=== PATIENT | male | born 1960 | race Caucasian/White ===

== ENCOUNTER → 2018-01-20 10:34 | Outpatient (CLI) | payer BC, SELFPAY ==
[2018-01-22 16:11] LABS: PROEL- A/G Ratio 1.4 (0.7-1.7); PROEL- Albumin 3.7 g/dL (2.9-4.4); PROEL- Alpha-1 Globulin 0.2 g/dL (0.0-0.4); PROEL- Alpha-2 Globulin 0.6 g/dL (0.4-1.0); PROEL- Beta Globulin 1.1 g/dL (0.7-1.3); PROEL- Gamma Globulin 0.9 g/dL (0.4-1.8); PROEL- Globulin, Total 2.7 g/dL (2.2-3.9); PROEL- TOTAL PROTEIN 6.4 g/dL (6.0-8.5)
[2018-01-23 11:34] LABS: Anti-Nuclear Antibody Test Negative (.)
== END ==
PROVIDERS: Family Provider Family Medicine; PCP Family Medicine; Visit Provider Internal Medicine Nephrology
DX: R80.9 Proteinuria, unspecified (principal)
CPT/HCPCS: 36415; 84165; 84166; 86038

== ENCOUNTER → 2018-01-21 13:20 | Outpatient (CLI) | payer BC, SELFPAY ==
--- NOTE | 2018-01-21 13:24 | US_ITS ---
STUDY: RENAL ULTRASOUND - COMPLETE REASON FOR EXAM: Male, 57 years old. Chronic renal failure. TECHNIQUE: Ultrasound evaluation of the kidneys was performed with real-time and static wilson-scale imaging. COMPARISON: None. FINDINGS: RIGHT KIDNEY: Normal location of the right kidney, which is normal in size. The right kidney measures 12.2 x 6.2 x 4.6 cm. There is a normal cortex of the right kidney. The renal cortex measures 1.3 cm. There is no right renal mass or cyst. There is a 9 mm nonobstructing renal stone. There is no right hydronephrosis. DISTAL RIGHT URETER: There is non-visualization of the distal right ureter. There is no demonstrated right ureterovesical junction calculus. There is a visualized right ureteral jet. LEFT KIDNEY: Normal location of the left kidney, which is normal in size. The left kidney measures 12.2 x 4.9 x 5.4 cm. There is a normal cortex of the left kidney. The renal cortex measures 1.4 cm. There is no left renal mass or cyst. There are no left renal calculi. There is no left hydronephrosis. DISTAL LEFT URETER: There is non-visualization of the distal left ureter. There is no demonstrated left ureterovesical junction calculus. There is a visualized left ureteral jet. BLADDER: The distended urinary bladder has a volume of 191 ml. There is a normal wall thickness of the distended urinary bladder. There is no demonstrated mass within the urinary bladder. There are no demonstrated bladder calculi. US/Kidney and Bladder IMPRESSION: Nonobstructing stone of the right kidney, otherwise negative. Electronically Signed: Santana Medel MD at 20:14 EDT , Service support ,
== END ==
PROVIDERS: Family Provider Family Medicine; PCP Family Medicine; Visit Provider Internal Medicine Nephrology
DX: N18.3 Chronic kidney disease, stage 3 (moderate) (principal)
CPT/HCPCS: 76770

== ENCOUNTER → 2018-02-16 10:55 | Outpatient (CLI) | payer BC, SELFPAY ==
[2018-02-16 12:50] LABS: BUN 18 mg/dL (7-18); BUN/Creat Ratio 13.3 RATIO (10-20); Calcium,Total 8.8 mg/dL (8.5-10.1); Chloride 103 mmol/L (98-107); Creatinine, Serum 1.35 mg/dL (0.70-1.30); EST Glomerular Filtration Rate 58 mL/min (>60); Est Glom Filt Rate - Afr Amer 70 mL/min (>60); Glucose 95 mg/dL (74-106); Phosphorus 3.3 mg/dL (2.5-4.9); Protein, Urine (Random) 39.1 mg/dL (<11.9); Protein:Creat Ratio 326 mg/g CRE (0-200); Sodium Level 137 mmol/L (136-145)
== END ==
PROVIDERS: Family Provider Family Medicine; PCP Family Medicine; Visit Provider Internal Medicine Nephrology
DX: R80.9 Proteinuria, unspecified (principal)
CPT/HCPCS: 36415; 80069; 82570; 84156

== ENCOUNTER → 2018-03-23 13:37 | Outpatient (CLI) | payer BC, SELFPAY ==
[2018-03-23 14:45] LABS: Anion Gap 7 (5-15); BUN 18 mg/dL (7-18); BUN/Creat Ratio 13.5 RATIO (10-20); Chloride 106 mmol/L (98-107); Creatinine, Serum 1.33 mg/dL (0.70-1.30); EST Glomerular Filtration Rate 59 mL/min (>60); Est Glom Filt Rate - Afr Amer 71 mL/min (>60); Glucose 93 mg/dL (74-106); Potassium 4.4 mmol/L (3.5-5.1); Sodium Level 140 mmol/L (136-145)
== END ==
PROVIDERS: Family Provider Family Medicine; PCP Family Medicine; Visit Provider Internal Medicine Nephrology
DX: E87.5 Hyperkalemia (principal)
CPT/HCPCS: 36415; 80048

== ENCOUNTER → 2018-05-01 11:19 | Outpatient (CLI) | payer BC, SELFPAY ==
[2018-05-01 11:54] LABS: 24 Hour Urine Protein 533.6 mg/24HR (<150 MG/24HR); 24HR. UA Prot. Total Volume 2300 mL; Urine Protein (24 Hour) 23.2 mg/dL (<11.9)
[2018-05-01 13:35] LABS: BUN 21 mg/dL (7-18); BUN/Creat Ratio 15.6 RATIO (10-20); Calcium,Total 8.9 mg/dL (8.5-10.1); Chloride 106 mmol/L (98-107); Creatinine, Serum 1.35 mg/dL (0.70-1.30); EST Glomerular Filtration Rate 58 mL/min (>60); Est Glom Filt Rate - Afr Amer 70 mL/min (>60); Glucose 107 mg/dL (74-106); Phosphorus 3.5 mg/dL (2.5-4.9); Sodium Level 141 mmol/L (136-145)
== END ==
PROVIDERS: Family Provider Family Medicine; PCP Family Medicine; Visit Provider Internal Medicine Nephrology
DX: R80.9 Proteinuria, unspecified (principal); E87.5 Hyperkalemia
CPT/HCPCS: 36415; 80069; 82570; 84156

== ENCOUNTER → 2018-05-21 09:23 | Outpatient (CLI) | payer BC, SELFPAY ==
[2018-05-21 09:48] LABS: CPK Total, Creatine Kinase 148 U/L (39-308)
== END ==
PROVIDERS: Family Provider Family Medicine; PCP Family Medicine; Visit Provider Family Medicine
DX: R07.89 Other chest pain (principal)
CPT/HCPCS: 82550; 84484

== ENCOUNTER 2018-06-24 15:50 | Observation (INO) | payer BC, SELFPAY ==
[2018-06-24] VITALS (15 sets, daily range): BP systolic 111–146; BP diastolic 73–98; PULSE 63–77; RESP 10–20; TEMP 36.6–36.8; O2SAT 95–98; BMI 32.0; BMI 30.5; BMI 30.6
--- NOTE | 2018-06-24 16:06 | EKG12_ITS ---
Test Reason : CP Blood Pressure : / mmHG Vent. Rate : 073 BPM Atrial Rate : 073 BPM P-R Int : 142 ms QRS Dur : 086 ms QT Int : 362 ms P-R-T Axes : 036 030 018 degrees QTc Int : 398 ms Normal sinus rhythm with sinus arrhythmia Possible Left atrial enlargement Borderline ECG Confirmed by MELIDA LARA, ZAHIRA ([id number]), assistant film editor KERI LIVINGSTON ([id number]) on 06/26/2018 1:54:39 PM Referred By: KARINE Confirmed By:ZAHIRA MONTEZ MD
[2018-06-24] MEDS: Mag Hydrox/Al Hydrox/Simeth 30 ML UDC PO (16:13)
--- NOTE | 2018-06-24 16:23 | NURSING ---
CALLED [facility] TO GET NUCLEAR STRESS TEST RESULTS
--- NOTE | 2018-06-24 17:17 | RAD_ITS ---
STUDY: X-RAY CHEST REASON FOR EXAM: Male, 58 years old. Chest pressure. TECHNIQUE: Single AP portable upright view of the chest. COMPARISON: PA and lateral chest x-ray July 14, 2017. FINDINGS: Subsegmental density of crowding versus inflammation suggested in the medial right lung base. The lungs are otherwise clear and expanded. There is no demonstrated pleural abnormality. Normal size heart. Normal mediastinum and cristiana. Normal visualized pulmonary arteries. Normal visualized aortic arch and descending thoracic aorta. There are stable degenerative changes of the visualized thoracic spine. Normal visualized ribs, clavicles, and shoulders. There is no demonstrated abnormality of the visualized soft tissue structures of the upper abdomen. RAD/Chest 1 View (Portable) IMPRESSION: Subsegmental crowding versus inflammatory change in the medial right base. Electronically Signed: Barber Perry MD at 17:39 EDT , Service support ,
[2018-06-24] MEDS: Nitroglycerin Infusion 250 ML 3 MG IV (17:25)
--- NOTE | 2018-06-24 17:25 | NURSING ---
DR SHETTY IN ROOM
[2018-06-24 17:41] LABS: Anion Gap 10 (5-15); BUN 20 mg/dL (7-18); BUN/Creat Ratio 14.9 RATIO (10-20); Calcium,Total 8.9 mg/dL (8.5-10.1); Chloride 106 mmol/L (98-107); Creatinine, Serum 1.34 mg/dL (0.70-1.30); EST Glomerular Filtration Rate 58 mL/min (>60); Est Glom Filt Rate - Afr Amer 71 mL/min (>60); Estimated Creatinine Clearance 58.84 ml/min; Glucose 97 mg/dL (74-106); Sodium Level 139 mmol/L (136-145)
[2018-06-24] MEDS: Enoxaparin 100 MG/ML Syringe SC (17:46)
[2018-06-24] MEDS: Clopidogrel Bisulfate 300 MG Tablet PO (17:46)
--- NOTE | 2018-06-24 17:49 | NURSING ---
PCU DIOGENES OBS UNSTABLE ANGINA
--- NOTE | 2018-06-24 17:56 | NURSING ---
104 OBS UNSTABLE ANGINA DIOGENES
--- NOTE | 2018-06-24 17:58 | ED.VISSUMM ---
- ER Visit Summary Date of Service: 06/24/18 Chief Complaint: Chest pressure during nuclear stress test History of Present Illness: The patient is a 58 M who had a stress test a couple weeks ago and was informed it was possibly abnormal. Patient was having chest discomfort that was not exertional in nature. Pain was not positional nor was it related to food. Today's episode occurred during activity and was not alleviated by nitroglycerin. He denies black or bloody stool. He denies hematemesis. He does have history of GERD and proteinuria. He is presently on lisinopril 20 mg. He informed me that Dr. Martinez, the spray technician, prescribed lisinopril for proteinuria. He is a non-smoker. He denies symptoms of claudication. He has no other symptoms. Please read written note for complete detail. Physical Examination: Vital signs noted and blood pressure is slightly low at 139/82. He is not hypoxic. Head is atraumatic normocephalic. Pupils are equal round reactive. Extraocular muscles are intact. TMs are pearly white with landmarks noted. Nares patent with no drainage. Posterior pharynx without erythema or exudate. Uvula is midline. There is no dysphonia or dysphasia. Trachea is midline. There is no stridor with auscultation of the neck. Heart is regular without murmur, gallop or rub. S1 and S2 are normal. Lungs are clear to auscultation with good movement of air bilaterally. Abdomen is soft nontender with no palpable cell mass or abdominal bruit. There is no asymmetry, swelling, discoloration, leg vein distention, palpable cords or tenderness along the distribution of the deep venous system. DP and PT pulses are palpable and 2+. Patient has hair on his toes. Neuro exam is nonfocal. Test Results: EKG revealed a sinus rhythm with no acute ischemic changes. [place] contacted the [facility] for results of nuclear stress test. Because of atypical history a troponin was obtained. And because he had no relief with 3 nitroglycerin prior to arrival and was given aspirin he was given a GI cocktail with no benefit. After reviewing the results of the stress test he was placed on a nitroglycerin drip and anticoagulated with Lovenox 1 mg/kg subcu and after discussion with Dr. Naylor received 300 mg of Plavix p.o. Emergency Department Course and Treatment: Obtain nuclear stress test results. After reviewing nuclear stress test results that indicates inferolateral ischemia Dr. Naylor was contacted. Dr. Garcia saw patient. Agrees with treatment. He requested 300 mg of Plavix. Treatment Plan: PCU and scheduled cardiac catheterization tomorrow Disposition: 23 observation PCU Impression: Unstable angina/acute coronary syndrome Renal insufficiency History of proteinuria This note was generated with [employer] dictation software. It may contain incorrect words, spelling, and punctuation that were not noted in review of the chart prior to signing ED Disposition - Plan for ED Patient: Chief Complaint: Chest Pain Referrals: Moody Beltre MD [Primary Care Provider] -
--- NOTE | 2018-06-24 18:02 | ED.DCSUM_ITS ---
- ER Visit Summary Date of Service: 06/24/18 Chief Complaint: Chest pressure during nuclear stress test History of Present Illness: The patient is a 58 M who had a stress test a couple weeks ago and was informed it was possibly abnormal. Patient was having chest discomfort that was not exertional in nature. Pain was not positional nor was it related to food. Today's episode occurred during activity and was not alleviated by nitroglycerin. He denies black or bloody stool. He denies hematemesis. He does have history of GERD and proteinuria. He is presently on lisinopril 20 mg. He informed me that Dr. Martinez, the ladle builder, prescribed lisinopril for proteinuria. He is a non-smoker. He denies symptoms of claudication. He has no other symptoms. Please read written note for complete detail. Physical Examination: Vital signs noted and blood pressure is slightly low at 139/82. He is not hypoxic. Head is atraumatic normocephalic. Pupils are equal round reactive. Extraocular muscles are intact. TMs are pearly white with landmarks noted. Nares patent with no drainage. Posterior pharynx without erythema or exudate. Uvula is midline. There is no dysphonia or dysphasia. Trachea is midline. There is no stridor with auscultation of the neck. Heart is regular without murmur, gallop or rub. S1 and S2 are normal. Lungs are clear to auscultation with good movement of air bilaterally. Abdomen is soft nontender with no palpable cell mass or abdominal bruit. There is no asymmetry, swelling, discoloration, leg vein distention, palpable cords or tenderness along the distribution of the deep venous system. DP and PT pulses are palpable and 2+. Patient has hair on his toes. Neuro exam is nonfocal. Test Results: EKG revealed a sinus rhythm with no acute ischemic changes. [place] contacted the [facility] for results of nuclear stress test. Because of atypical history a troponin was obtained. And because he had no relief with 3 nitroglycerin prior to arrival and was given aspirin he was given a GI cocktail with no benefit. After reviewing the results of the stress test he was placed on a nitroglycerin drip and anticoagulated with Lovenox 1 mg/kg subcu and after discussion with Dr. Naylor received 300 mg of Plavix p.o. Emergency Department Course and Treatment: Obtain nuclear stress test results. After reviewing nuclear stress test results that indicates inferolateral ischemia Dr. Naylor was contacted. Dr. Garcia saw patient. Agrees with treatment. He requested 300 mg of Plavix. Treatment Plan: PCU and scheduled cardiac catheterization tomorrow Disposition: 23 observation PCU Impression: Unstable angina/acute coronary syndrome Renal insufficiency History of proteinuria This note was generated with [employer] dictation software. It may contain incorrect words, spelling, and punctuation that were not noted in review of the chart prior to signing ED Disposition - Plan for ED Patient: Chief Complaint: Chest Pain Referrals: Moody Beltre MD [Primary Care Provider] -
--- NOTE | 2018-06-24 18:09 | EKG12_ITS ---
Test Reason : REPEAT Blood Pressure : / mmHG Vent. Rate : 065 BPM Atrial Rate : 065 BPM P-R Int : 146 ms QRS Dur : 088 ms QT Int : 392 ms P-R-T Axes : 032 042 -07 degrees QTc Int : 407 ms Normal sinus rhythm Normal ECG Confirmed by Najma Khan ([id number]), make up editor KERI LIVINGSTON ([id number]) on 06/29/2018 3:34:24 PM Referred By: DIOGENES Confirmed By:Najma Khan
--- NOTE | 2018-06-24 18:17 | PCM.CONS.C ---
Reason for Consult Date of Consultation: 06/24/18 Reason for Consultation: Chest pain History of Present Illness: The patient is a 58 year old M with no previous cardiac history other than mild proteinuria and possible hypertension. He was scheduled for and underwent an exercise stress test without imaging a few weeks ago and was told that it was inconclusive and was brought back for an exercise myocardial perfusion stress test today. This was on the basis of chest discomfort that he had had intermittently. He describes this as a heaviness occasionally radiating to the left side of his arm. He exercised 9 minutes and 50 seconds on the Kike protocol attaining 11.4 metabolic equivalents. There was approximately 1.[address] depression noted in the inferior leads during testing a marbella minute by chest discomfort. Necessitated termination of the chest discomfort and he was sent to the emergency room for further evaluation and treatment. The nuclear portion of the stress test however was noted to be normal. Since arrival in the emergency room he has noted minimal chest discomfort he was noted to be mildly hypertensive he was given sublingual nitroglycerin in the ambulance en route with minimal improvement. He has not had any prior dizziness or diaphoresis near syncope or syncope. [] Past Medical History Allergies/Adverse Reactions: Allergies bee venom protein (honey bee) Allergy (Verified 06/24/18 15:51) Anaphylaxis Home Medications: Ambulatory Orders Medication Instructions Recorded Acetaminophen [Tylenol Extra 1,500 mg PO DAILY 06/24/18 Strength] Lisinopril 20 mg PO DAILY 06/24/18 Omeprazole 40 mg PO DAILY 06/24/18 Surgical History: no surgical history Smoking Status: Never smoker Alcohol: Occasional Drugs: None Review of Systems - Review of Systems General: Denies: Fever, Night Sweats, Fatigue Cardiovascular: Reports: Chest Discomfort with Exertion, Chest Pressure, Chest Heaviness. Denies: Chest Discomfort, Shortness of Breath, Orthopnea, PND, Peripheral Edema, Palpitations, Lightheadedness, Dizziness, Near Syncope, Syncope Respiratory: Denies: Cough, Sputum Production, Hemoptysis Gastrointestinal: Denies: Hematemesis, Hematochezia, Melena Genitourinary: Denies: Dysuria, Hematuria Skin: Denies: Rash Subjectve: Pleasant gentleman in no apparent distress at this time Objective: Vital Signs Temp Pulse Resp BP Pulse Ox 98.1 F 70 15 146/95 H 97 06/24/18 15:52 06/24/18 18:07 06/24/18 18:07 06/24/18 18:07 06/24/18 18:07 Oxygen Delivery Method Room Air Weight: 210 lb 8.663 oz Body Mass Index (BMI) 32.0 General: Awake, Alert, Oriented x 3 HEENT: PERRL, EOMI, Sclera Non Icteric Neck: Supple, Good ROM, No Lymph Node Enlargement Lungs: Clear to auscultation Cardiovascular: Regular Rhythm, Normal S1, Normal S2, No Murmurs, No Rubs, No Gallops Vascular: No Carotid Bruits, Normal Femoral Pulses, Normal Radial Pulses, Normal Dorsalis Pedal Pulse, Normal Posterior Tibial Pulses Abdomen: Bowel Sounds Present, Soft, Non Tender, No HSM, No Organomegaly Extremities: No Cyanosis, No Clubbing, No edema Neurological: No Focal Motor or Sensory Deficit 06/24/18 16:10: Troponin I < 0.015 06/24/18 16:10: Sodium 139, Potassium 4.0, Chloride 106, Carbon Dioxide 23.0, Anion Gap 10, BUN 20 H, Creatinine 1.34 H, Est GFR (MDRD) Af Amer 71, Est GFR (MDRD) Non-Af 58 L, BUN/Creatinine Ratio 14.9, Glucose 97, Calcium 8.9 Rhythm: EKG: ECHO: Stress Test: Cardiac Cath: PCI: CT Surgery: Holter monitor: EPS: PPM: CXR: Chest CT Scan: Assessment/Plan 1. Chest pain-with abnormal stress test. He presents with chest discomfort with an abnormal EKG portion of the stress test but a normal myocardial perfusion test. He still continues to have some of the chest discomfort despite a normal cardiac troponin enzyme test. Due to the persistence of the chest discomfort it was felt that he should undergo a cardiac catheterization in a.m. The risk benefits alternatives have been explained to him he understands and agrees to proceed. He would prefer to have this done via the femoral approach in case he needs an angioplasty. Will recommend starting baby aspirin Will load him with clopidogrel Start metoprolol 25 mg twice a day Lovenox tonight Intravenous hydration with 75 cc/hr of normal saline Lipid profile in a.m. Depending on the results of the above tests further recommendations will be made. Above discussed with the patient and his . 2. Proteinuria Will recommend resuming the MACARENA inhibitor. 3. Suspected hypertension Suspect that he does have high blood pressure and will continue treating him with his MACARENA inhibitor. Thank you for allowing me to participate in the care of your patient. Please don't hesitate to call if any issues arise
--- NOTE | 2018-06-24 18:22 | CON.PCM_ITS ---
Reason for Consult Date of Consultation: 06/24/18 Reason for Consultation: Chest pain History of Present Illness: The patient is a 58 year old M with no previous cardiac history other than mild proteinuria and possible hypertension. He was scheduled for and underwent an exercise stress test without imaging a few weeks ago and was told that it was inconclusive and was brought back for an exercise myocardial perfusion stress test today. This was on the basis of chest discomfort that he had had intermittently. He describes this as a heaviness occasionally radiating to the left side of his arm. He exercised 9 minutes and 50 seconds on the Kike protocol attaining 11.4 metabolic equivalents. There was approximately 1.[address] depression noted in the inferior leads during testing a marbella minute by chest discomfort. Necessitated termination of the chest discomfort and he was sent to the emergency room for further evaluation and treatment. The nuclear portion of the stress test however was noted to be normal. Since arrival in the emergency room he has noted minimal chest discomfort he was noted to be mildly hypertensive he was given sublingual nitroglycerin in the ambulance en route with minimal improvement. He has not had any prior dizziness or kemal phoresis near syncope or syncope. [] Past Medical History Allergies/Adverse Reactions: Allergies bee venom protein (honey bee) Allergy (Verified 06/24/18 15:51) Anaphylaxis Home Medications: Ambulatory Orders Medication Instructions Recorded Acetaminophen [Tylenol Extra 1,500 mg PO DAILY 06/24/18 Strength] Lisinopril 20 mg PO DAILY 06/24/18 Omeprazole 40 mg PO DAILY 06/24/18 Surgical History: no surgical history Smoking Status: Never smoker Alcohol: Occasional Drugs: None Review of Systems - Review of Systems General: Denies: Fever, Night Sweats, Fatigue Cardiovascular: Reports: Chest Discomfort with Exertion, Chest Pressure, Chest Heaviness. Denies: Chest Discomfort, Shortness of Breath, Orthopnea, PND, Peripheral Edema, Palpitations, Lightheadedness, Dizziness, Near Syncope, Syncope Respiratory: Denies: Cough, Sputum Production, Hemoptysis Gastrointestinal: Denies: Hematemesis, Hematochezia, Melena Genitourinary: Denies: Dysuria, Hematuria Skin: Denies: Rash Subjectve: Pleasant gentleman in no apparent distress at this time Objective: Vital Signs Temp Pulse Resp BP Pulse Ox 98.1 F 70 15 146/95 H 97 06/24/18 15:52 06/24/18 18:07 06/24/18 18:07 06/24/18 18:07 06/24/18 18:07 Oxygen Delivery Method Room Air Weight: 210 lb 8.663 oz Body Mass Index (BMI) 32.0 General: Awake, Alert, Oriented x 3 HEENT: PERRL, EOMI, Sclera Non Icteric Neck: Supple, Good ROM, No Lymph Node Enlargement Lungs: Clear to auscultation Cardiovascular: Regular Rhythm, Normal S1, Normal S2, No Murmurs, No Rubs, No Gallops Vascular: No Carotid Bruits, Normal Femoral Pulses, Normal Radial Pulses, Normal Dorsalis Pedal Pulse, Normal Posterior Tibial Pulses Abdomen: Bowel Sounds Present, Soft, Non Tender, No HSM, No Organomegaly Extremities: No Cyanosis, No Clubbing, No edema Neurological: No Focal Motor or Sensory Deficit 06/24/18 16:10: Troponin I < 0.015 06/24/18 16:10: Sodium 139, Potassium 4.0, Chloride 106, Carbon Dioxide 23.0, Anion Gap 10, BUN 20 H, Creatinine 1.34 H, Est GFR (MDRD) Af Amer 71, Est GFR (MDRD) Non-Af 58 L, BUN/Creatinine Ratio 14.9, Glucose 97, Calcium 8.9 Rhythm: EKG: ECHO: Stress Test: Cardiac Cath: PCI: CT Surgery: Holter monitor: EPS: PPM: CXR: Chest CT Scan: Assessment/Plan 1. Chest pain-with abnormal stress test. * He presents with chest discomfort with an abnormal EKG portion of the stress test but a normal myocardial perfusion test. He still continues to have some of the chest discomfort despite a normal cardiac troponin enzyme test. Due to the persistence of the chest discomfort it was felt that he should undergo a cardiac catheterization in a.m. The risk benefits alternatives have been explained to him he understands and agrees to proceed. He would prefer to have this done via the femoral approach in case he needs an angioplasty. * Will recommend starting baby aspirin * Will load him with clopidogrel * Start metoprolol 25 mg twice a day * Lovenox tonight * Intravenous hydration with 75 cc/hr of normal saline * Lipid profile in a.m. * Depending on the results of the above tests further recommendations will be made. Above discussed with the patient and his . * 2. Proteinuria * Will recommend resuming the MACARENA inhibitor. * 3. Suspected hypertension * Suspect that he does have high blood pressure and will continue treating him with his MACARENA inhibitor. * * Thank you for allowing me to participate in the care of your patient. Please don't hesitate to call if any issues arise
[2018-06-24 19:06] LABS: Absolute Lymphocyte Count 2.96 X10^3/ul (0.83-4.51); Absolute Neutrophil Count 3.8 X10^3/uL (2.0-7.7); Basophil# 0.03 X10^3/uL; Basophil% 0.4 % (0-1); Eosinophil# 0.22 X10^3/uL; Eosinophils% 2.9 % (0-5); Hematocrit 48.2 % (40-54); Hemoglobin 16.5 g/dl (13.0-16.5); Lymphocyte # 2.96 X10^3/ul (4.0); Lymphocyte % 39.7 % (19-41); Mean Corp Hgb Conc 34.2 g/gl (32-36); Mean Corpuscular Hgb 30.4 pg (27.0-32.0); Mean Corpuscular Volume 88.9 fL (80-94); Mean Platelet Vol. 9.8 fl (6.2-12.0); Monocyte% 5.4 % (0-10); Neutrophil # 3.84 X10^3/uL (2.7-7.7); Neutrophil % 51.5 % (47-70); Platelet Count 218 K/mm3 (150-450); RBC Distribution Width CV 12.9 % (11.6-14.6); RBC Distribution Width SD 41.4 fl (35.1-43.9); Red Blood Count 5.42 M/mm3 (4.6-6.2); White Blood Count 7.5 K/mm3 (4.4-11.0)
[2018-06-24 19:10] LABS: POSITIVE COUNT NO; POSITIVE DIFFERENTIAL NO; POSITIVE MORPHOLOGY NO
[2018-06-24] MEDS: 0.9% Normal Saline 1,000 ML 75 ML IV (22:22)
[2018-06-24] MEDS: Metoprolol Tartrate 25 MG Tablet PO (22:33)
[2018-06-24 23:59] LABS: Bacteria 0 SEEN /hpf (None Seen); Mucous, Urine 0 SEEN /hpf (<or=2+); Red Blood Cells-Urine 0 SEEN /hpf (0-5); Squamous Epithelial Cells - UA 0 SEEN /hpf (0-5); White Blood Cells 0 SEEN /hpf (0-5)
[2018-06-25] VITALS (17 sets, daily range): BP systolic 92–116; BP diastolic 57–87; PULSE 54–70; RESP 11–18; TEMP 36.4–36.6; O2SAT 96–100
[2018-06-25 00:03] LABS: Color, Urine Yellow (Yellow); Glucose, Dipstick Normal (Normal); Ketone-Dipstick Negative (Negative); Leukocyte Esterase-Dipstick Negative /ul (Negative); Nitrite-Dipstick Negative (Negative); Occult Blood-Urine Negative /ul (Negative); Protein-Dipstick 30 mg/dl (Negative); Urine Bilirubin Dipstick Negative (Negative); Urine Clarity Clear (Clear); Urine Urobilinogen Normal (Normal)
--- NOTE | 2018-06-25 05:55 | EKG12_ITS ---
Test Reason : AM EKG Blood Pressure : / mmHG Vent. Rate : 063 BPM Atrial Rate : 063 BPM P-R Int : 150 ms QRS Dur : 084 ms QT Int : 400 ms P-R-T Axes : 038 043 -02 degrees QTc Int : 409 ms Normal sinus rhythm Normal ECG Confirmed by Najma Khan ([id number]), state editor KERI LIVINGSTON ([id number]) on 06/29/2018 3:33:57 PM Referred By: DIOGENES Confirmed By:Najma Khan
[2018-06-25 06:07] LABS: Absolute Lymphocyte Count 2.56 X10^3/ul (0.83-4.51); Absolute Neutrophil Count 3.7 X10^3/uL (2.0-7.7); Basophil# 0.02 X10^3/uL; Basophil% 0.3 % (0-1); Eosinophil# 0.15 X10^3/uL; Eosinophils% 2.2 % (0-5); Hematocrit 45.6 % (40-54); Hemoglobin 15.9 g/dl (13.0-16.5); Lymphocyte # 2.56 X10^3/ul (4.0); Lymphocyte % 36.8 % (19-41); Mean Corp Hgb Conc 34.9 g/gl (32-36); Mean Corpuscular Hgb 31.2 pg (27.0-32.0); Mean Corpuscular Volume 89.6 fL (80-94); Mean Platelet Vol. 9.6 fl (6.2-12.0); Monocyte# 0.51 X10^3/uL; Monocyte% 7.3 % (0-10); Neutrophil # 3.71 X10^3/uL (2.7-7.7); Neutrophil % 53.3 % (47-70); Platelet Count 244 K/mm3 (150-450); RBC Distribution Width SD 42.1 fl (35.1-43.9); Red Blood Count 5.09 M/mm3 (4.6-6.2)
[2018-06-25 06:08] LABS: International Normalized Ratio 1.1; Prothrombin Time (Protime)PT. 14.3 SECONDS (11.7-14.9)
[2018-06-25 06:09] LABS: Partial Thromboplast Time 31.3 Seconds (24.1-36.2)
[2018-06-25] MEDS: Clopidogrel Bisulfate 75 MG Tablet PO (06:10)
[2018-06-25] MEDS: Metoprolol Tartrate 25 MG Tablet PO (06:10)
[2018-06-25] MEDS: Aspirin 81 MG TAB.CHEW PO (06:11)
[2018-06-25 06:22] LABS: POSITIVE COUNT NO; POSITIVE DIFFERENTIAL NO; POSITIVE MORPHOLOGY NO
[2018-06-25 06:29] LABS: ALB/GLOB Ratio 1.3 RATIO (0.9-2.4); AST(SGOT) 20 U/L (15-37); Alanine Aminotransfer ALT/SGPT 46 U/L (16-61); Albumin, Serum 3.4 g/dL (3.2-5.0); Alkaline Phosphatase 62 U/L (45-117); Anion Gap 8 (5-15); BUN 19 mg/dL (7-18); BUN/Creat Ratio 15.4 RATIO (10-20); Calcium,Total 8.2 mg/dL (8.5-10.1); Chloride 107 mmol/L (98-107); Cholesterol 152 mg/dL (200); Creatinine, Serum 1.23 mg/dL (0.70-1.30); EST Glomerular Filtration Rate 64 mL/min (>60); Est Glom Filt Rate - Afr Amer 78 mL/min (>60); Estimated Creatinine Clearance 64.11 ml/min; Globulin 2.7 g/dL (2.2-4.2); Glucose 96 mg/dL (74-106); High Density Lipoprotein 28 mg/dL; Potassium 4.6 mmol/L (3.5-5.1); Protein, Total 6.1 g/dL (6.4-8.2); Sodium Level 140 mmol/L (136-145); Triglycerides 264 mg/dL; Very Low Density Lipoprotein 53 mg/dL (5-40)
--- NOTE | 2018-06-25 07:46 | PN.CARD_ITS ---
Subjectve: Patient seen and evaluated. Underwent cardiac catheterization this morning. Objective: Vital Signs Temp Pulse Resp BP Pulse Ox 97.5 F L 58 L 15 106/74 98 06/25/18 06:00 06/25/18 06:10 06/25/18 06:00 06/25/18 06:10 06/25/18 06:00 Oxygen Delivery Method Room Air Weight: 201 lb Body Mass Index (BMI) 30.5 Intake and Output for Last 24 Hours 06/23/18 06/24/18 06/25/18 23:59 23:59 23:59 Intake Total 152.2 / 152.2 461.4 / 461.4 Balance 152.2 / 152.2 461.4 / 461.4 General: Awake, Alert, Oriented x 3 HEENT: PERRL, EOMI, Sclera Non Icteric Neck: Supple, Good ROM, No Lymph Node Enlargement Lungs: Clear to auscultation Cardiovascular: Regular Rhythm, Normal S1, Normal S2, No Murmurs, No Rubs, No Gallops Vascular: No Carotid Bruits, Normal Femoral Pulses, Normal Radial Pulses, Normal Dorsalis Pedal Pulse, Normal Posterior Tibial Pulses Abdomen: Bowel Sounds Present, Soft, Non Tender, No HSM, No Organomegaly Extremities: No Cyanosis, No Clubbing, No edema Neurological: No Focal Motor or Sensory Deficit 06/24/18 16:10: Troponin I < 0.015 06/24/18 16:10: Sodium 139, Potassium 4.0, Chloride 106, Carbon Dioxide 23.0, Anion Gap 10, BUN 20 H, Creatinine 1.34 H, Est GFR (MDRD) Af Amer 71, Est GFR (MDRD) Non-Af 58 L, BUN/Creatinine Ratio 14.9, Glucose 97, Calcium 8.9 06/24/18 18:33: WBC 7.5, RBC 5.42, Hgb 16.5, Hct 48.2, MCV 88.9, MCH 30.4, MCHC 34.2, RDW 12.9, RDW Differential 41.4, Plt Count 218, MPV 9.8, Immature Gran % (Auto) 0.100, Neut % (Auto) 51.5, Lymph % (Auto) 39.7, Woodruff % (Auto) 5.4, Eos % (Auto) 2.9, Baso % (Auto) 0.4, Absolute Neuts (auto) 3.8, Total Counted Not Reportable 06/24/18 19:21: Troponin I < 0.015 06/24/18 20:30: Urine Color Yellow, Urine Clarity Clear, Urine pH 6.0, Ur Specific Ridge 1.010, Urine Protein 30 H, Urine Glucose (UA) Normal, Urine Ketones Negative, Urine Occult Blood Negative, Urine Nitrite Negative, Urine Bilirubin Negative, Urine Urobilinogen Normal, Ur Leukocyte Esterase Negative, Urine RBC 0 SEEN, Urine WBC 0 SEEN 06/24/18 21:32: Troponin I < 0.015 06/25/18 05:24: WBC 7.0, RBC 5.09, Hgb 15.9, Hct 45.6, MCV 89.6, MCH 31.2, MCHC 34.9, RDW 13.0, RDW Differential 42.1, Plt Count 244, MPV 9.6, Immature Gran % (Auto) 0.100, Neut % (Auto) 53.3, Lymph % (Auto) 36.8, Woodruff % (Auto) 7.3, Eos % (Auto) 2.2, Baso % (Auto) 0.3, Absolute Neuts (auto) 3.7, Total Counted Not Reportable 06/25/18 05:24: Sodium 140, Potassium 4.6, Chloride 107, Carbon Dioxide 25.0, Anion Gap 8, BUN 19 H, Creatinine 1.23, Est GFR (MDRD) Af Amer 78, Est GFR (MDRD) Non-Af 64, BUN/Creatinine Ratio 15.4, Glucose 96, Calcium 8.2 L, Total Bilirubin 0.70, Triglycerides 264 H, Cholesterol 152, LDL Cholesterol 71, VLDL Cholesterol 53 H, HDL Cholesterol 28 L 06/25/18 05:24: PT 14.3, INR 1.1, APTT 31.3 Rhythm: EKG: ECHO: Stress Test: Cardiac Cath: PCI: CT Surgery: Holter monitor: EPS: PPM: CXR: Chest CT Scan: Medical Necessity - Tobacco Use Smoking Status: Never smoker Tobacco Use: Non-smoker Assessment/Plan 1. Chest pain-with abnormal stress test. * He presents with chest discomfort with an abnormal EKG portion of the stress test but a normal myocardial perfusion test. * His cardiac catheterization today demonstrated the following: Normal left main coronary artery. Left anterior descending artery with mild proximal disease. Left circumflex artery with no significant disease. Dominant right coronary artery with no significant disease. Preserved left ventricular ejection fraction. Based on the above angiographic findings it appears to corroborate with the nuclear portion of the stress test which was normal. Recommendation will be to manage aggressively. It appears that the EKG changes were likely likely secondary to hypertensive heart disease. * 2. Proteinuria * Will recommend resuming the MACARENA inhibitor. * 3. Suspected hypertension * Suspect that he does have high blood pressure and will continue treating him with his MACARENA inhibitor. * Will recommend the addition of Norvasc 5 mg a day * 4. Low HDL * Will recommend the addition of low intensity statin exercise and diet. * Thank you for allowing me to participate in the care of your patient. Please don't hesitate to call if any issues arise
--- NOTE | 2018-06-25 07:46 | PCM.DC.CCA ---
Discharge Diet: No Restrictions - You may continue your normal diet. Lifting Restrictions: 10 pounds and also avoid any pushing or pulling for 3 days after your test. Additional Activity Instructions:: You must have someone drive you home. Do not drive until instructed by your doctor. You must have someone stay with you all night after your test. Rest in bed or on the couch until the next morning. Limit the number of times you go up and down stairs the day of your test. Apply pressure to the puncture site if you sneeze or cough. Call your doctor if your incision/area has: Increased Pain/ Swelling, Increased Redness, Foul Smelling Discharge, Swelling at the incision site Call your doctor if you observe: Fever of 101 or Higher Additional Dressing/Incision Instructions:: Keep the dressing (bandage) on until the next morning. You may then shower, but do not take a tub bath for 5 days after your test. It is normal to have some tenderness and discomfort at the puncture site. Sometimes bruising also occurs. However, if pain, numbness, or coldness occurs below the puncture site (in your leg, toes, arms or fingers) call your doctor at once. You may have a small, marble sized knot at the puncture site. This is normal. Do not rub it. It will go away in 4-6 weeks. Bleeding can occur from the area where the puncture was done. Blood may spurt or drip from the site. If blood spurts, apply pressure right away to stop bleeding and call 911. Although rare, bleeding into the tissue (hematoma) can also occur. If this happens, a large, firm area goose egg under the skin will appear. If any of these occur, lie down as flat as you can and have someone apply firm pressure to the cath site with a gauze pad or a clean washcloth for 10-15 minutes. Call 911 or go to the Emergency Department. Allergies/Adverse Reactions: Allergies bee venom protein (honey bee) Allergy (Verified 06/24/18 15:51) Anaphylaxis Medications to take at Discharge Acetaminophen [Tylenol] 1,500 mg PO DAILY 06/24/18 Lisinopril 20 mg PO DAILY 06/24/18 Omeprazole 40 mg PO DAILY 06/24/18 Amlodipine [Norvasc] 5 mg PO DAILY #90 tablet 06/25/18 Aspirin [Aspirin, Baby] 81 mg PO DAILY@0800 tab.chew 06/25/18 Atorvastatin Calcium [Lipitor] 10 mg PO QHS #90 tablet 06/25/18 The following prescriptions were given: Amlodipine [Norvasc] 5 mg PO DAILY #90 tablet Atorvastatin Calcium [Lipitor] 10 mg PO QHS #90 tablet Primary Care Physician: Moody Beltre MD [Primary Care Provider] - Test Results: Test results from this visit will be discussed in further detail at your follow-up appointment, if applicable. When: DR DUBOIS Cardiac Rehabilitation Info Cardiac Rehabilitation Program Information: Cardiac Rehabilitation is important for patients like you who are recovering from a heart problem. Cardiac rehabilitation programs are recognized as integral to the continued care of the patient with coronary heart disease. The cardiac rehabilitation program is designed to optimize a patient's physical, psychological, and social functioning. Health hiv/aids care nurse work in cardiac rehabilitation programs and assist you with getting the treatments you need to get stronger and healthier - like exercise, healthy eating habits, and medications. Cardiac rehabilitation has been show to help people with heart problems live longer and have better life enjoyment than people who do not go to cardiac rehabilitation. Please contact the Cardiac Rehabilitation Program at [facility] at in two weeks if you have not heard from them.
--- NOTE | 2018-06-25 07:49 | DCINST_ITS ---
Discharge Diet: No Restrictions - You may continue your normal diet. Lifting Restrictions: 10 pounds and also avoid any pushing or pulling for 3 days after your test. Additional Activity Instructions:: You must have someone drive you home. Do not drive until instructed by your doctor. You must have someone stay with you all night after your test. Rest in bed or on the couch until the next morning. Limit the number of times you go up and down stairs the day of your test. Apply pressure to the puncture site if you sneeze or cough. Call your doctor if your incision/area has: Increased Pain/ Swelling, Increased Redness, Foul Smelling Discharge, Swelling at the incision site Call your doctor if you observe: Fever of 101 or Higher Additional Dressing/Incision Instructions:: Keep the dressing (bandage) on until the next morning. You may then shower, but do not take a tub bath for 5 days after your test. It is normal to have some tenderness and discomfort at the puncture site. Sometimes bruising also occurs. However, if pain, numbness, or coldness occurs below the puncture site (in your leg, toes, arms or fingers) call your doctor at once. You may have a small, marble sized knot at the puncture site. This is normal. Do not rub it. It will go away in 4-6 weeks. Bleeding can occur from the area where the puncture was done. Blood may spurt or drip from the site. If blood spurts, apply pressure right away to stop bleeding and call 911. Although rare, bleeding into the tissue (hematoma) can also occur. If this happens, a large, firm area goose egg under the skin will appear. If any of these occur, lie down as flat as you can and have someone apply firm pressure to the cath site with a gauze pad or a clean washcloth for 10-15 minutes. Call 911 or go to the Emergency Department. Allergies/Adverse Reactions: Allergies bee venom protein (honey bee) Allergy (Verified 06/24/18 15:51) Anaphylaxis Medications to take at Discharge Acetaminophen [Tylenol] 1,500 mg PO DAILY 06/24/18 Lisinopril 20 mg PO DAILY 06/24/18 Omeprazole 40 mg PO DAILY 06/24/18 Amlodipine [Norvasc] 5 mg PO DAILY #90 tablet 06/25/18 Aspirin [Aspirin, Baby] 81 mg PO DAILY@0800 tab.chew 06/25/18 Atorvastatin Calcium [Lipitor] 10 mg PO QHS #90 tablet 06/25/18 The following prescriptions were given: Amlodipine [Norvasc] 5 mg PO DAILY #90 tablet Atorvastatin Calcium [Lipitor] 10 mg PO QHS #90 tablet Primary Care Physician: Moody Beltre MD [Primary Care Provider] - Test Results: Test results from this visit will be discussed in further detail at your follow- up appointment, if applicable. When: DR DUBOIS Cardiac Rehabilitation Info Cardiac Rehabilitation Program Information: Cardiac Rehabilitation is important for patients like you who are recovering from a heart problem. Cardiac rehabilitation programs are recognized as integral to the continued care of the patient with coronary heart disease. The cardiac rehabilitation program is designed to optimize a patient's physical, psychological, and social functioning. Health health care analyst work in cardiac rehabilitation programs and assist you with getting the treatments you need to get stronger and healthier - like exercise, healthy eating habits, and medications. Cardiac rehabilitation has been show to help people with heart problems live longer and have better life enjoyment than people who do not go to cardiac rehabilitation. Please contact the Cardiac Rehabilitation Program at [facility] at in two weeks if you have not heard from them.
--- NOTE | 2018-06-25 07:53 | CL.D_ITS ---
Patient Name: MIGDALIA SCHMIDT Study Date: 06/25/2018 Performing: Michael Naylor MD Ht: 68 inches 173 cm : 1960 Wt: 200.9 lbs 91 kg Age: 58 Gender: male BSA: 2.05 PROCEDURE(S) PERFORMED LC54-CXG/COR/LV CLINICAL PROFILE AND INDICATIONS Indications: Suspected CAD Heart Failure: None Stress/Imaging Stress Test w/SPECT MPI: Yes Result: NegativeStress Test with SPECT MPI: Negative CAD Presentations: Symptom unlikely to be ischemic. CONCLUSIONS Non obstructive coronary arteries Perserved Left Ventricular systolic function with normal EDP RECOMMENDATIONS Medical therapy DESCRIPTION OF PROCEDURE The patient arrived to the procedure lab. The risks and benefits of the procedure as well as a full d escription of our services here and current unavailability of surgical backup were fully explained to the patient and/or their significant other prior to the catheterization. The Timeout was completed, verifying the correct patient and procedure. The patient's procedural site was prepped and draped in the usual fashion. Local anesthetic was given subcutaneously to right groin region with Lidocaine 2%. Using a modified Seldinger technique, arterial access was obtained via the right femoral artery, a 5 Fr sheath was inserted. Left Coronary Artery selective angiography was performed in multiple views u sing a 5 Fr. JL4 catheter. Right Coronary Artery selective angiography was then performed in multiple views using a 5 Fr. 3DRC (Hugo) catheter. Left Ventriculography was performed in ERAZO projection using a 5 Fr. Pigtail catheter. LV to AO pullback pressures were then recorded.Contrast was injected through the sheath and the Right Iliac and Femoral artery were assessed for possible closure device.T he arterial sheath was pulled and a Mynx closure device was deployed for hemostasis CORONARY ANGIOGRAPHY DOMINANCE: Right Dominant LEFT HEART ASSESSMENT Left Ventricular Ejection Fraction: by LV Gram 60 % Normal LV wall motion Normal Left Ventricular systolic function LEFT MAIN: Angiographically normal LEFT ANTERIOR DECENDING ARTERY: PROX LAD: 30-40 % Stenosis, Mild luminal irregularities less than 30% CIRCUMFLEX ARTERY: No significant disease noted RIGHT CORONARY ARTERY: No significant disease noted COMPLICATIONS No Complications PROCEDURE MEDICATIONS Versed 1 mg IV Nitro glycerin 25mg / 250ml D5W @ 5 mcg/min IV continued from floor 06/25/2018 07:10:45 Nitro glycerin 25mg / 250ml D5W @ discontinued 06/25/2018 07:35:17 SUMMARY OF HEMODYNAMIC DATA Time AIR REST ECG 07:08:01 AO 116/79 (95) SA 07:19:18 LV 105/13, 19 07:26:30 LV 127/17, 23 07:26:38 LVp 109/6, 24 07:27:17 LV 111/5, 27 07:27:22 AOp 150/66 (99) 07:27:23 Signed By Michael Naylor MD On 06/25/2018 07:53:10 Michael Naylor MD
[2018-06-25] MEDS: Lisinopril 20 MG Tablet PO (10:47)
[2018-06-25] MEDS: amLODIPine 5 MG Tablet PO (10:47)
[2018-06-25] MEDS: Pantoprazole Sodium 40 MG Tablet PO (10:47)
== END 2018-06-25 07:43 | disposition home or self-care (01) ==
LOC: ED 16:27 → PCU 06-25 06:39
PROVIDERS: Admitting Provider Internal Medicine Cardiovascular Disease; Emergency Provider Emergency Medicine; Family Provider Family Medicine; PCP Family Medicine; Visit Provider Internal Medicine Cardiovascular Disease
DX: R07.89 Other chest pain (principal); K21.9 Gastro-esophageal reflux disease without esophagitis; Z23 Encounter for immunization; Z79.899 Other long term (current) drug therapy; R80.9 Proteinuria, unspecified; R94.31 Abnormal electrocardiogram [ECG] [EKG]
CPT/HCPCS: 36415; 71045; 80048; 80053; 80061; 81001; 84484; 85025; 85610; 85730; 87086; 93005; 93458; 96361; 96365; 96366; 96372; 99152; 99153; 99285; 99406; C1760; J7030; 90686; A4216; C1769; Q9967

== ENCOUNTER → 2018-09-07 11:58 | Outpatient (CLI) | payer BC, SELFPAY ==
[2018-06-24 18:45] VITALS: BMI 30.5
[2018-09-07 13:09] LABS: Protein, Urine (Random) 31.5 mg/dL (<11.9); Protein:Creat Ratio 186 mg/g CRE (0-200)
[2018-09-07 13:12] LABS: Albumin, Serum 3.9 g/dL (3.2-5.0); BUN 24 mg/dL (7-18); BUN/Creat Ratio 17.8 RATIO (10-20); Calcium,Total 8.9 mg/dL (8.5-10.1); Chloride 104 mmol/L (98-107); Creatinine, Serum 1.35 mg/dL (0.70-1.30); EST Glomerular Filtration Rate 58 mL/min (>60); Est Glom Filt Rate - Afr Amer 70 mL/min (>60); Glucose 91 mg/dL (74-106); Phosphorus 3.3 mg/dL (2.5-4.9); Potassium 4.4 mmol/L (3.5-5.1); Sodium Level 141 mmol/L (136-145)
== END ==
PROVIDERS: Family Provider Family Medicine; PCP Family Medicine; Visit Provider Internal Medicine Nephrology
DX: R80.9 Proteinuria, unspecified (principal); N18.3 Chronic kidney disease, stage 3 (moderate)
CPT/HCPCS: 36415; 80069; 82570; 84156

== ENCOUNTER → 2019-03-03 | Outpatient (CLI) | payer BC, SELFPAY ==
[2018-06-24 18:45] VITALS: BMI 30.5
[2019-03-03 12:02] LABS: Protein, Urine (Random) 32.1 mg/dL (<11.9); Protein:Creat Ratio 243 mg/g CRE (0-200)
[2019-03-03 12:03] LABS: Albumin, Serum 3.8 g/dL (3.2-5.0); BUN 16 mg/dL (7-18); BUN/Creat Ratio 12.3 RATIO (10-20); Calcium,Total 8.9 mg/dL (8.5-10.1); Chloride 109 mmol/L (98-107); EST Glomerular Filtration Rate 60 mL/min (>60); Est Glom Filt Rate - Afr Amer 73 mL/min (>60); Glucose 100 mg/dL (74-106); Phosphorus 2.7 mg/dL (2.5-4.9); Potassium 4.6 mmol/L (3.5-5.1); Sodium Level 141 mmol/L (136-145)
== END | disposition home or self-care (01) ==
LOC: POLAB3 09:25
PROVIDERS: Family Provider Family Medicine; PCP Family Medicine; Visit Provider Internal Medicine Nephrology
DX: N18.3 Chronic kidney disease, stage 3 (moderate) (principal); R80.9 Proteinuria, unspecified
CPT/HCPCS: 36415; 80069; 82570; 84156

== ENCOUNTER → 2019-09-03 10:41 | Outpatient (CLI) | payer BC, SELFPAY ==
[2018-06-24 18:45] VITALS: BMI 30.5
[2019-09-03 12:01] LABS: Albumin, Serum 3.9 g/dL (3.2-5.0); BUN 21 mg/dL (7-18); BUN/Creat Ratio 15.3 RATIO (10-20); Calcium,Total 8.4 mg/dL (8.5-10.1); Chloride 109 mmol/L (98-107); Creatinine, Serum 1.37 mg/dL (0.70-1.30); EST Glomerular Filtration Rate 57 mL/min (>60); Est Glom Filt Rate - Afr Amer 69 mL/min (>60); Glucose 129 mg/dL (74-106); Phosphorus 2.6 mg/dL (2.5-4.9); Potassium 4.1 mmol/L (3.5-5.1); Sodium Level 140 mmol/L (136-145)
[2019-09-03 12:03] LABS: Protein, Urine (Random) 17.2 mg/dL (<11.9); Protein:Creat Ratio 196 mg/g CRE (0-200)
== END ==
PROVIDERS: Family Provider Family Medicine; PCP Family Medicine; Visit Provider Internal Medicine Nephrology
DX: R80.9 Proteinuria, unspecified (principal); N18.3 Chronic kidney disease, stage 3 (moderate)
CPT/HCPCS: 36415; 80069; 82570; 84156

== ENCOUNTER → 2020-04-05 11:41 | Outpatient (CLI) | payer BC, SELFPAY ==
[2018-06-24 18:45] VITALS: BMI 30.5
[2020-04-05 12:41] LABS: Protein, Urine (Random) 14.1 mg/dL (<11.9); Protein:Creat Ratio 228 mg/g CRE (0-200)
[2020-04-05 12:45] LABS: Albumin, Serum 3.7 g/dL (3.2-5.0); BUN 18 mg/dL (7-18); Calcium,Total 8.5 mg/dL (8.5-10.1); Chloride 105 mmol/L (98-107); Creatinine, Serum 1.29 mg/dL (0.70-1.30); EST Glomerular Filtration Rate 61 mL/min (>60); Est Glom Filt Rate - Afr Amer 73 mL/min (>60); Glucose 138 mg/dL (74-106); Phosphorus 2.8 mg/dL (2.5-4.9); Potassium 4.1 mmol/L (3.5-5.1); Sodium Level 138 mmol/L (136-145)
== END ==
PROVIDERS: Family Provider Family Medicine; PCP Family Medicine; Visit Provider Internal Medicine Nephrology
DX: N18.3 Chronic kidney disease, stage 3 (moderate) (principal)
CPT/HCPCS: 36415; 80069; 82570; 84156

== ENCOUNTER → 2020-11-03 09:25 | Outpatient (CLI) | payer BC, SELFPAY ==
[2018-06-24 18:45] VITALS: BMI 30.5
[2020-11-03 12:21] LABS: Absolute Lymphocyte Count 2.54 X10^3/uL (0.83-4.51); Absolute Neutrophil Count 4.1 X10^3/uL (2.0-7.7); Basophil# 0.05 X10^3/uL; Basophil% 0.7 % (0-1); Eosinophil# 0.19 X10^3/uL; Eosinophils% 2.5 % (0-5); Hemoglobin 17.4 g/dL (13.0-16.5); Lymphocyte # 2.54 X10^3/ul (4.0); Mean Corp Hgb Conc 33.5 g/dL (32-36); Mean Corpuscular Hgb 30.3 pg (27.0-32.0); Mean Corpuscular Volume 90.4 fL (80-94); Mean Platelet Vol. 10.5 fl (6.2-12.0); Monocyte# 0.56 X10^3/uL; Monocyte% 7.5 % (0-10); NRBC Flagged by Analyzer 0 % (0-5); Neutrophil # 4.11 X10^3/uL (2.7-7.7); Platelet Count 273 K/mm3 (150-450); RBC Distribution Width CV 12.3 % (11.6-14.6); RBC Distribution Width SD 40.8 fl (35.1-43.9); Red Blood Count 5.75 M/mm3 (4.6-6.2); White Blood Count 7.5 K/mm3 (4.4-11.0)
[2020-11-03 12:36] LABS: Vitamin B12 634 pg/mL (211-911)
[2020-11-03 12:37] LABS: Hemoglobin A1c 5.8 % (3.8-5.6)
[2020-11-03 12:44] LABS: Protein, Urine (Random) 20.2 mg/dL (<11.9); Protein:Creat Ratio 464 mg/g CRE (0-200)
[2020-11-03 12:51] LABS: ALB/GLOB Ratio 1.2 RATIO (0.9-2.4); AST(SGOT) 27 U/L (15-37); Alanine Aminotransfer ALT/SGPT 62 U/L (16-61); Albumin, Serum 3.9 g/dL (3.2-5.0); Alkaline Phosphatase 80 U/L (45-117); Anion Gap 7 (5-15); BUN 17 mg/dL (7-18); BUN/Creat Ratio 10.9 RATIO (10-20); Calcium,Total 9.3 mg/dL (8.5-10.1); Chloride 106 mmol/L (98-107); Cholesterol 131 mg/dL (200); Creatinine, Serum 1.56 mg/dL (0.70-1.30); EST Glomerular Filtration Rate 49 mL/min (>60); Est Glom Filt Rate - Afr Amer 59 mL/min (>60); Globulin 3.3 g/dL (2.2-4.2); Glucose 97 mg/dL (74-106); High Density Lipoprotein 41 mg/dL; Magnesium 2.1 mg/dL (1.6-2.6); Phosphorus 2.8 mg/dL (2.5-4.9); Protein, Total 7.2 g/dL (6.4-8.2); Sodium Level 140 mmol/L (136-145); Triglycerides 138 mg/dL; Very Low Density Lipoprotein 28 mg/dL (5-40)
== END ==
PROVIDERS: PCP Family Medicine
DX: R80.9 Proteinuria, unspecified (principal); N18.30 Chronic kidney disease, stage 3 unspecified; N28.9 Disorder of kidney and ureter, unspecified; Z79.899 Other long term (current) drug therapy; E78.5 Hyperlipidemia, unspecified; R73.09 Other abnormal glucose; I25.10 Atherosclerotic heart disease of native coronary artery without angina pectoris; I25.83 Coronary atherosclerosis due to lipid rich plaque; K21.00 Gastro-esophageal reflux disease with esophagitis, without bleeding
CPT/HCPCS: 36415; 80053; 80061; 82570; 82607; 83036; 83735; 84100; 84156; 85025

== ENCOUNTER → 2021-06-15 11:09 | Outpatient (CLI) | payer BC, SELFPAY ==
[2018-06-24 18:45] VITALS: BMI 30.5
[2021-06-15 12:22] LABS: Protein, Urine (Random) < 6.0 mg/dL (<11.9)
[2021-06-15 12:40] LABS: Albumin, Serum 3.9 g/dL (3.2-5.0); BUN 23 mg/dL (7-18); BUN/Creat Ratio 15.5 RATIO (10-20); Chloride 104 mmol/L (98-107); Creatinine, Serum 1.48 mg/dL (0.70-1.30); EST Glomerular Filtration Rate 52 mL/min (>60); Est Glom Filt Rate - Afr Amer 62 mL/min (>60); Glucose 93 mg/dL (74-106); Phosphorus 3.3 mg/dL (2.5-4.9); Potassium 4.6 mmol/L (3.5-5.1); Sodium Level 135 mmol/L (136-145)
== END ==
PROVIDERS: PCP Family Medicine; Referring Provider Internal Medicine Nephrology; Visit Provider Internal Medicine Nephrology
DX: N18.30 Chronic kidney disease, stage 3 unspecified (principal)
CPT/HCPCS: 36415; 80069; 82570; 84156

== ENCOUNTER → 2021-08-01 08:06 | Outpatient (CLI) | payer BC, SELFPAY ==
[2021-08-01 09:43] LABS: Albumin, Serum 3.6 g/dL (3.2-5.0); BUN 18 mg/dL (7-18); BUN/Creat Ratio 13.2 RATIO (10-20); Calcium,Total 8.8 mg/dL (8.5-10.1); Chloride 107 mmol/L (98-107); Creatinine, Serum 1.36 mg/dL (0.70-1.30); EST Glomerular Filtration Rate 57 mL/min (>60); Est Glom Filt Rate - Afr Amer 69 mL/min (>60); Glucose 68 mg/dL (74-106); Phosphorus 3.2 mg/dL (2.5-4.9); Potassium 4.5 mmol/L (3.5-5.1); Sodium Level 140 mmol/L (136-145)
== END ==
PROVIDERS: PCP Family Medicine; Referring Provider Internal Medicine Nephrology; Visit Provider Internal Medicine Nephrology
DX: N18.30 Chronic kidney disease, stage 3 unspecified (principal); R80.9 Proteinuria, unspecified
CPT/HCPCS: 36415; 80069

== ENCOUNTER 2021-09-28 09:30 | Emergency (ER) | payer BC, SELFPAY ==
[2021-09-28 09:31] VITALS: BP 125/81; PULSE 91; RESP 16; TEMP 35.9; O2SAT 99; BMI 26.4
--- NOTE | 2021-09-28 10:11 | EKG12_ITS ---
Test Reason : SOB Blood Pressure : / mmHG Vent. Rate : 076 BPM Atrial Rate : 076 BPM P-R Int : 144 ms QRS Dur : 086 ms QT Int : 360 ms P-R-T Axes : 027 010 -05 degrees QTc Int : 405 ms Normal sinus rhythm Normal ECG Confirmed by IDOGENES LARA, RAF ([id number]), advertising editor LUIS BONDS ([id number]) on 10/03/2021 12:11:31 PM Referred By: MARK Confirmed By:RAF SHETTY MD
--- NOTE | 2021-09-28 10:12 | EX.ED.DYSGE1 ---
HPI History of Present Illness Chief Complaint: Shortness of Breath Detail of Chief Complaint: Shortness of breath and chest pain Informant: patient Narrative Narrative: Patient presents to the emergency department stating that he has Covid. Patient started having left-sided chest discomfort yesterday. Pain worse with movement and deep breath. Pain radiates to his back on the left side. Patient's also has Covid. Patient is fully immunized but has not had his booster. He has had fevers off and on. He complains of a headache and cough. Complains of sore throat and rhinorrhea. Prior similar symptoms: No PFSH PFS Medical History (Updated 09/28/21 @ 12:[address] Miguel A Chen, DO) CAD (coronary artery disease) GERD (gastroesophageal reflux disease) History of neck pain ABDULKADIR (obstructive sleep apnea) Home Medications acetaminophen 1,500 mg PO DAILY 06/24/18 [History Last Taken 06/23/18] lisinopril 20 mg PO DAILY 06/24/18 [History Last Taken 06/23/18] omeprazole 40 mg PO DAILY 06/24/18 [History Last Taken 06/23/18] amlodipine 5 mg PO DAILY #90 tablet 06/25/18 [Rx Last Taken Unknown] aspirin 81 mg PO DAILY@0800 tab.chew 06/25/18 [Rx Last Taken Unknown] atorvastatin 10 mg PO QHS #90 tablet 06/25/18 [Rx Last Taken Unknown] Allergy/AdvReac Type Severity Reaction Status Date / Time bee venom protein (honey bee) Allergy Anaphylaxis Verified 09/28/21 09:33 Social History Smoking Status: Never smoker [facility] ED Constitutional Constitutional ED: Reports systems reviewed and no addt'l complaints, except as documented; Denies body ache(s), change in weight or chills Eyes Eyes: Denies acute decrease in peripheral vision, change in vision, double vision or loss of vision ENT ENT ED: Reports none and sore throat; Denies ear pain, lip swelling, loss taste/smell, neck pain or otalgia Cardiovascular Cardiovascular: Reports none and chest pain; Denies abdominal pain, chest pain with activity, leg edema, lightheadedness, palpitations, rapid heart rate or syncope Respiratory/Chest Respiratory/Chest: Reports none and cough; Denies change in mental status, dry cough, dyspnea, hemoptysis, shortness of breath at rest or shortness of breath with exertion Gastrointestinal Gastrointestinal: Reports none; Denies abdominal pain, change in stool character, diarrhea, hematemesis, hematochezia, melena, rectal bleeding or vomiting Genitourinary Genitourinary ED: Reports none; Denies abdominal discomfort, anuria, dysuria, genital pain or polyuria Musculoskeletal Musculoskeletal: Reports none; Denies arthralgias, back pain, difficulty walking, extremity pain, muscle weakness or myalgias Integumentary Reports none; Denies abscess or rash Neurologic Neurologic: Reports none and headache(s); Denies abnormal gait, confusion, focal weakness, frequent falls, loss of vision, numbness, paresthesias, radicular pain, vertigo or weakness Psychiatric Psychiatric: Reports systems reviewed and no addt'l complaints, except as documented and none; Denies behavioral changes, confusion, difficulty concentrating, hallucinations, suicidal ideation, tactile hallucinations or visual hallucinations Endocrine Endocrinology: Denies none, cold intolerance, excessive sweating, fatigue or heat intolerance Hematologic/Lymphatic Hematologic/Lymphatic: Reports none; Denies anemia, easy bleeding or easy bruising Allergic/Immunologic Allergic/Immunologic ED: Denies as per HPI, none, lip swelling, mouth swelling, throat swelling, tongue swelling or hives EXAM Physical Exam Const Vital Signs: 09/28/21 09:31 09/28/21 09:38 Temperature 96.6 F L Temperature Source Temporal Pulse Rate 91 Respiratory Rate 16 Respiratory Effort Normal Non-Labored Respiratory Depth Normal Respiratory Pattern Normal Blood Pressure 125/81 H Blood Pressure Mean 95 Pulse Ox 99 Oxygen Delivery Method Room Air Room Air Positive well nourished and well developed General Appearance ED: well developed and NAD HEENT Reports TM's clear and moist mucous membranes normocephalic and atraumatic; Negative for trauma or tenderness Tympanic Membrane ED: Yes TM's clear Eyes PERRL and EOMs intact bilaterally General Eye ED: Negative for pale conjunctiva or scleral icterus Neck no lymphadenopathy, supple and no JVD General: Negative for tenderness Chest Wall inspection of chest normal and palpation of chest normal Chest: Negative for tenderness Resp normal respiratory effort and clear to auscultation bilaterally Effort and Inspection: Negative for respiratory distress or pain with movement Auscultation: Negative for rhonchi, wheezes or diminished lung sounds Cardio regular rate, regular rhythm, S1 normal heart sound, S2 normal heart sound and no murmurs Peripheral Pulses: pulses 2+ throughout GI normal to inspection, nondistended, normoactive bowel sounds, soft to palpation, non-tender, non-distended and no masses Back/Spine no CVA tenderness and no thoracic nor lumbar tenderness Extremity normal to inspection General Extremety ED: Negative for edema General Extremity: Negative for edema Neuro oriented x3, CN's II-XII intact bilaterally, no sensory deficits noted and gait normal Sensorium / Orientation: awake, alert, oriented to person, oriented to place and oriented to time Motor Exam: strength 5/5 throughout and strength abnormal Psych mental status grossly normal Skin no rashes or lesions noted and no wounds MDM MDM MDM Narrative Medical decision making narrative: IV line established and patient was given Toradol. He did have good pain relief with that. His pain did start to come back. Patient will be referred for monoclonal antibody infusion. Patient advised to return if increasing shortness of breath, worsening chest pain, or condition should worsen anyway. Lab Data Attestation: I reviewed the patient's lab results. Labs: Laboratory Results - last 24 hr 09/28/21 09/28/21 09/28/21 09:45 09:45 09:45 WBC 6.5 RBC 5.51 Hgb 16.7 H Hct 50.8 MCV 92.2 MCH 30.3 MCHC 32.9 RDW Std Deviation 43.8 RDW Coeff of Prem 12.9 Plt Count 218 MPV 9.8 Immature Gran % (Auto) 0.300 Neut % (Auto) 62.2 Lymph % (Auto) 21.0 Collin % (Auto) 12.5 H Eos % (Auto) 3.4 Baso % (Auto) 0.6 Absolute Neuts (auto) 4.0 Absolute Lymphs (auto) 1.36 Nucleated RBC % 0 D-Dimer Quant (PE/DVT) <= 0.27 Sodium 139 Potassium 4.3 Chloride 105 Carbon Dioxide 29.0 Anion Gap 5 BUN 21 H Creatinine 1.26 Estim Creat Clear Calc 60.32 Est GFR (MDRD) Af Amer 75 Est GFR (MDRD) Non-Af 62 BUN/Creatinine Ratio 16.7 Glucose 106 Calcium 9.0 Troponin I High Sens 4 Radiography Chest X-Ray - ED: 1 View Diagnostic Testin view obtained interpreted by myself as faint increased markings in the right and left lower lobes suspect atelectasis versus early infiltrates. Official report from radiology pending. EKG Initial EKG: Attestation: I personally reviewed and interpreted this EKG as follows: Comments: Sinus rhythm with a ventricular rate of 76 bpm with no acute ST segment changes Discharge Plan Triage Chief Complaint: Shortness of Breath ED Provider: Miguel A Chen Dx/Rx/DC Orders Clinical Impression: COVID-19, Chest pain Instructions: ED - COVID Monoclonal AB Infusion ..., Caring for Someone Who Has COVID-19 Prescriptions: No Action lisinopril 20 MG tablet 20 mg PO DAILY RF: 0 omeprazole 40 MG capsule,delayed release(DR/EC) 40 mg PO DAILY RF: 0 acetaminophen 500 MG tablet 1,500 mg PO DAILY RF: 0 atorvastatin 10 MG tablet 10 mg PO QHS Qty: 90 RF: 3 amlodipine 5 MG tablet 5 mg PO DAILY Qty: 90 RF: 3 aspirin 81 MG tablet,chewable 81 mg PO DAILY@0800 RF: 0 Primary Care Provider: Moody Beltre Referrals: Moody Beltre MD [Primary Care Provider] - Disposition Disposition: Home, Self Care
[2021-09-28 10:18] LABS: Absolute Lymphocyte Count 1.36 X10^3/uL (0.83-4.51); Basophil# 0.04 X10^3/uL; Basophil% 0.6 % (0-1); Eosinophil# 0.22 X10^3/uL; Eosinophils% 3.4 % (0-5); Hematocrit 50.8 % (40-54); Hemoglobin 16.7 g/dL (13.0-16.5); Lymphocyte # 1.36 X10^3/ul (0.83-4.51); Mean Corp Hgb Conc 32.9 g/dL (32-36); Mean Corpuscular Hgb 30.3 pg (27.0-32.0); Mean Corpuscular Volume 92.2 fL (80-94); Mean Platelet Vol. 9.8 fl (6.2-12.0); Monocyte# 0.81 X10^3/uL; Monocyte% 12.5 % (0-10); NRBC Flagged by Analyzer 0 % (0-5); Neutrophil # 4.03 X10^3/uL (2.7-7.7); Neutrophil % 62.2 % (47-70); Platelet Count 218 K/mm3 (150-450); RBC Distribution Width CV 12.9 % (11.6-14.6); RBC Distribution Width SD 43.8 fl (35.1-43.9); Red Blood Count 5.51 M/mm3 (4.6-6.2); White Blood Count 6.5 K/mm3 (4.4-11.0)
[2021-09-28 10:27] LABS: D-Dimer Quantitative (DVT/PE) <= 0.27 FEU/ug/m (0.27-0.49)
[2021-09-28 10:32] LABS: Anion Gap 5 (5-15); BUN 21 mg/dL (7-18); BUN/Creat Ratio 16.7 RATIO (10-20); Chloride 105 mmol/L (98-107); Creatinine, Serum 1.26 mg/dL (0.70-1.30); EST Glomerular Filtration Rate 62 mL/min (>60); Est Glom Filt Rate - Afr Amer 75 mL/min (>60); Estimated Creatinine Clearance 60.32 ml/min; Glucose 106 mg/dL (74-106); Potassium 4.3 mmol/L (3.5-5.1); Sodium Level 139 mmol/L (136-145); Troponin-I HS 4 pg/mL (3.0-78.0)
[2021-09-28] MEDS: Ketorolac 15 MG/ML Vial IV (10:33)
[2021-09-28] MEDS: 0.9% Normal Saline 1,000 ML 150 ML IV (10:34)
--- NOTE | 2021-09-28 12:09 | RAD_ITS ---
STUDY: X-RAY CHEST REASON FOR EXAM: Male, 61 years old. Chest pain/pressure TECHNIQUE: Single AP portable view of the chest. COMPARISON: 06/24/2018 FINDINGS: EKG leads overlie the chest The lungs are clear and expanded. There is no demonstrated pleural abnormality. Normal size heart. Normal mediastinum and cristiana. Normal visualized pulmonary arteries. Normal visualized aortic arch and descending thoracic aorta. Normal visualized thoracic spine. Normal visualized ribs, clavicles, and shoulders. There is no demonstrated abnormality of the visualized soft tissue structures of the upper abdomen. RAD/Chest 1 View (Portable) IMPRESSION: Normal x-ray examination of the chest. Electronically Signed: Barber Holcomb MD at 13:03 EST , Service support ,
[2021-09-28 12:58] VITALS: BP 130/76; PULSE 76; RESP 18; O2SAT 95
== END 2021-09-28 12:59 | disposition home or self-care (01) ==
PROVIDERS: Emergency Provider Emergency Medicine; PCP Family Medicine
DX: U07.1 COVID-19 (principal); R07.89 Other chest pain; I25.10 Atherosclerotic heart disease of native coronary artery without angina pectoris; K21.9 Gastro-esophageal reflux disease without esophagitis; Z79.82 Long term (current) use of aspirin; Z79.899 Other long term (current) drug therapy
CPT/HCPCS: 71045; 80048; 84484; 85025; 85379; 93005; 96361; 96374; 99284; J7030; A4216

== ENCOUNTER 2021-10-02 09:11 | Outpatient (CLI) | payer BC, SELFPAY ==
[2021-10-02 09:28] VITALS: BP 104/65; PULSE 71; RESP 16; TEMP 37.1; O2SAT 100; BMI 13.1
[2021-10-02] MEDS: 0.9% Saline Lock 10 ML Syringe IV (09:29)
[2021-10-02 09:55] VITALS: BP 96/60; PULSE 65; RESP 16; TEMP 37.1; O2SAT 97
[2021-10-02 10:47] VITALS: BP 122/66; PULSE 63; RESP 16; TEMP 36.9; O2SAT 100
== END 2021-10-02 23:59 | disposition home or self-care (01) ==
LOC: MS3OUT 09:11 → MS3 09:12
PROVIDERS: PCP Family Medicine; Referring Provider Emergency Medicine; Visit Provider Emergency Medicine
DX: U07.1 COVID-19 (principal)
CPT/HCPCS: J7050; M0243; A4216; Q0240

== ENCOUNTER → 2022-02-27 | Outpatient (CLI) | payer BC, SELFPAY | END | disposition home or self-care (01) | LOC: LAB.FUTURE 14:03 | PROVIDERS: PCP Family Medicine; Visit Provider Internal Medicine Nephrology | DX: N18.30 Chronic kidney disease, stage 3 unspecified (principal) ==

== ENCOUNTER → 2022-03-05 | Outpatient (CLI) | payer BC, SELFPAY ==
[2022-03-05 17:41] LABS: Albumin, Serum 3.7 g/dL (3.2-5.0); BUN 22 mg/dL (7-18); BUN/Creat Ratio 15.7 RATIO (10-20); Calcium,Total 8.8 mg/dL (8.5-10.1); Chloride 104 mmol/L (98-107); EST Glomerular Filtration Rate 55 mL/min (>60); Est Glom Filt Rate - Afr Amer 66 mL/min (>60); Glucose 96 mg/dL (74-106); Phosphorus 3.4 mg/dL (2.5-4.9); Sodium Level 137 mmol/L (136-145)
[2022-03-05 17:49] LABS: Protein, Urine (Random) 8.7 mg/dL (<11.9); Protein:Creat Ratio 143 mg/g CRE (0-200)
== END | disposition home or self-care (01) ==
LOC: POLAB3 15:44
PROVIDERS: PCP Family Medicine; Visit Provider Internal Medicine Nephrology
DX: N18.30 Chronic kidney disease, stage 3 unspecified (principal); R80.9 Proteinuria, unspecified
CPT/HCPCS: 36415; 80069; 82570; 84156

== ENCOUNTER → 2023-11-12 | Outpatient (CLI) | payer BC, SELFPAY ==
[2023-11-12 13:49] LABS: Protein, Urine (Random) 10.2 mg/dL (<11.9); Protein:Creat Ratio 411 mg/g CRE (0-200)
--- OUTSIDE RECORDS SUMMARY | 2023-11-12 15:06 | XMS RPT_ITS | CCD ---
Author Name Unknown Address [id number] [place] [address] Organization [facility] Care Team Providers Care Disposal Worker Name Role Phone Jeremy Estrada MD Primary Care Provider JEREMY ESTRADA Referring Unavailable JEREMY ESTRADA Primary Care Unavailable JEREMY ESTRADA Primary Care Unavailable JEREMY ESTRADA Attending Unavailable JEREMY ESTRADA Primary Care Unavailable LAKESHIA MORILLO Referring Unavailable JEREMY ESTRADA Primary Care Unavailable LAKESHIA MORILLO Referring Unavailable JEREMY ESTRADA Primary Care Unavailable DONALD FLEMING Referring Unavailable JEREMY ESTRADA Primary Care Unavailable JEREMY ESTRADA Primary Care Unavailable JEREMY ESTRADA Primary Care Unavailable LAKESHIA MORILLO Attending Unavailable Jeremy Estrada MD Primary Care Provider Allergies Allergy Classification Reported Allergen(s) Allergy Type Date of Onset Reaction(s) Facility (9 sources) Bee Sting; Translations: [BEE STING] Propensity to adverse reactions 10-10-2014 [facility] Work Phone: Medications Current Medications Medication Drug Class(es) Dates Sig (Normalized) Sig (Original) atorvastatin 10 mg oral tablet (3 sources) HMG-CoA Reductase Inhibitor Start: 02-01-2022 End: 04-30-2022 take 1 tablet by mouth once daily at bedtime for hyperlipidemia atorvastatin (LIPITOR) 10 mg tablet Take 1 tablet by mouth daily at bedtime. For cholesterol. 30 tablet 5 02/01/2022 04/30/2022 Discontinued Completed/Discontinued Medications Medication Drug Class(es) Dates Sig (Normalized) Sig (Original) acetaminophen 325 mg oral tablet (8 sources) Start: 07-19-2014 take 2 tablets by mouth every six hours as needed acetaminophen (TYLENOL) 325 mg tablet Take 2 tablets by mouth every 6 hours as needed for Pain. 0 07/19/2014 Active Problems Active Problems Problem Classification Problem Date Documented Da te Episodic/Chronic Coronary atherosclerosis and other heart disease (12 sources) Coronary atherosclerosis; Translations: [Atherosclerotic heart disease of [place] coronary artery without angina pectoris] Onset: 07-01-2018 07-01-2018 Chronic Disorders of lipid metabolism (11 sources) Dyslipidemia; Translations: [Hyperlipidemia, unspecified] Onset: 11-19-2016 11-19-2016 Chronic Esophageal disorders (18 sources) Lesion of esophagus; Translations: [Esophageal obstruction] Onset: 10-19-2012 11-08-2015 Chronic Esophageal disorders (1 source) Esophageal disorders; Translations: [Gastroesophageal reflux disease with esophagitis without hemorrhage] Onset: 11-19-2016 Headache; including migraine (8 sources) Tension-type headache; Translations: [Tension-type headache, unspecified, not intractable] Onset: 11-19-2016 11-19-2016 Chronic Hyperplasia of prostate (9 sources) Benign prostatic hyperplasia; Translations: [Benign prostatic hyperplasia with lower urinary tract symptoms] Onset: 10-31-2021 10-31-2021 Chronic Influenza (1 source) Influenza-like illness; Translations: [Influenza due to unidentified influenza virus with other respiratory manifestations] 06-11-2023 Episodic Other lower respiratory disease (1 source) Cough; Translations: [Subacute cough] 06-11-2023 Episodic Other upper respiratory infections (1 source) Upper respiratory infection; Translations: [Acute upper respiratory infection, unspecified] 05-23-2023 Episodic Residual codes; unclassified (10 sources) Obstructive sleep apnea syndrome; Translations: [Obstructive sleep apnea (adult) (pediatric)] Onset: 09-04-2015 09-24-2021 Chronic Unclassified (1 source) Subacute cough; Translations: [Subacute cough] Onset: 06-11-2023 Past or Other Problems Problem Classification Problem Date Documented Da te Episodic/Chronic Diabetes mellitus without complication (11 sources) High hemoglobin A1c level; Translations: [Other abnormal glucose] Onset: 0 11-25-2019 Episodic Genitourinary symptoms and ill-defined conditions (8 sources) Proteinuria; Translations: [Proteinuria, unspecified] Onset: 8 01-20-2018 Episodic Immunizations and screening for infectious disease (1 source) Encounter for immunization; Translations: [Encounter for immunization] Onset: 3 Episodic Other aftercare (20 sources) Patient encounter status; Translations: [Other longterm (current) drug therapy] Onset: 6 11-03-2020 Episodic Other aftercare (1 source) Other longterm (current) drug therapy; Translations: [Medication management] Onset: 1 Episodic Other diseases of kidney and ureters (10 sources) Renal impairment; Translations: [Disorder of kidney and ureter, unspecified] Onset: 8 01-20-2018 Episodic Other diseases of kidney and ureters (1 source) Disorder of kidney and ureter, unspecified; Translations: [Renal insufficiency] Onset: 8 Episodic Other infections; including parasitic (8 sources) Personal history of other infectious and parasitic diseases; Translations: [History of COVID-19] Onset: 2 10-31-2021 Episodic Other injuries and conditions due to external causes (8 sources) H/O: vertebral fracture; Translations: [Personal history of (healed) traumatic fracture] Onset: 4 11-25-2018 Episodic Phlebitis; thrombophlebitis and thromboembolism (8 sources) H/O: Deep vein thrombosis; Translations: [Personal history of other venous thrombosis and embolism] Onset: 4 09-24-2021 Episodic Residual codes; unclassified (8 sources) Family history of malignant neoplasm of gastrointestinal tract; Translations: [Family history of malignant neoplasm of digestive organs] Onset: 2 09-24-2021 Episodic Spondylosis; intervertebral disc disorders; other back problems (8 sources) Neck pain; Translations: [Cervicalgia] Onset: 7 11-19-2016 Episodic Results Test Name Value Interpretation Reference Range Facil ity Vital Signs Date Time Vital Sign Value Performing Clinician Maribeth goldsmith 06-11-2023 09:49-0400 Body temperature 97.9 [degF] Donald Fleming MD Work Phone: [facility] 06-11-2023 09:49-0400 Body weight 89.18 kg Donald Fleming MD Work Phone: [facility] 06-11-2023 09:49-0400 Diastolic blood pressure 82 mm[Hg] Donald Fleming MD Work Phone: [facility] 06-11-2023 09:49-0400 Heart rate 77 /min Donald Fleming MD Work Phone: [facility] 06-11-2023 09:49-0400 Respiratory rate 18 /min Donald Fleming MD Work Phone: [facility] 06-11-2023 09:49-0400 SaO2% (BldA) [Mass fraction] 98 % Donald Fleming MD Work Phone: [facility] 06-11-2023 09:49-0400 Systolic blood pressure 131 mm[Hg] Donald Fleming MD Work Phone: [facility] 05-23-2023 10:49-0400 Body height 172.7 cm Adina Malclom PRODUCT SAF[employer] HEAD.MAXILLOFACIAL PROSTHODONTIST Work Phone: [facility] 05-23-2023 10:49-0400 Body temperature 97.59 [degF] Adina Malcolm [employer] SAF[employer] HEAD.MAXILLOFACIAL PROSTHODONTIST Work Phone: [facility] 05-23-2023 10:49-0400 Body weight 88 kg Adina Malcolm PRODUCT SAFETY HEAD.MAXILLOFACIAL PROSTHODONTIST Work Phone: [facility] 05-23-2023 10:49-0400 Diastolic blood pressure 66 mm[Hg] Adina Malcolm PRODUCT SAFET[employer] HEAD.MAXILLOFACIAL PROSTHODONTIST Work Phone: [facility] 05-23-2023 10:49-0400 Heart rate 78 /min Adina Malcolm [employer] SAF[employer] HEAD.MAXILLOFACIAL PROSTHODONTIST Work Phone: [facility] 05-23-2023 10:49-0400 Respiratory rate 16 /min Adina Malcolm PRODUCT SAFET[employer] HEAD.MAXILLOFACIAL PROSTHODONTIST Work Phone: [facility] 05-23-2023 10:49-0400 SaO2% (BldA) [Mass fraction] 96 % Adina Malcolm PRODUCT SAFETY HEAD.MAXILLOFACIAL PROSTHODONTIST Work Phone: [facility] 05-23-2023 10:49-0400 Systolic blood pressure 111 mm[Hg] Adina Fowler MAXILLOFACIAL PROSTHODONTIST Work Phone: [facility] 11-12-2022 07:42-0500 Body height 172.7 cm Jeremy Estrada MD Work Phone: [facility] 11-12-2022 07:42-0500 Body weight 84.37 kg Jeremy Estrada MD Work Phone: [facility] 11-12-2022 07:42-0500 Diastolic blood pressure 78 mm[Hg] Jeremy Estrada MD Work Phone: [facility] 11-12-2022 07:42-0500 Heart rate 80 /min Jeremy Estrada MD Work Phone: [facility] 11-12-2022 07:42-0500 Respiratory rate 14 /min Jeremy Estrada MD Work Phone: [facility] 11-12-2022 07:42-0500 Systolic blood pressure 124 mm[Hg] Jeremy Estrada MD Work Phone: [facility] 04-30-2022 07:46-0400 Body temperature 97.3 [degF] Laksehia Morillo PA-C Work Phone: [facility] 04-30-2022 07:46-0400 Body weight 80.29 kg Lakeshia Morillo PA-C Work Phone: [facility] 04-30-2022 07:46-0400 Diastolic blood pressure 72 mm[Hg] Lakeshia Morillo PA-C Work Phone: [facility] 04-30-2022 07:46-0400 Heart rate 60 /min Lakeshia Morillo PA-C Work Phone: [facility] 04-30-2022 07:46-0400 Respiratory rate 18 /min Lakeshia Morillo PA-C Work Phone: [facility] 04-30-2022 07:46-0400 Systolic blood pressure 100 mm[Hg] Lakeshia Morillo PA-C Work Phone: [facility] Encounters Encounter Date Encounter Type Care Provider Facility Start: 11-06-2023 Refill Jeremy Estrada [facility] Procedures Date Procedure Procedure Detail Performing Clinician Start: 05-08-2023 Lipid 1996 panel - S guerita or Plasma Donald Fleming MD Work Phone: Start: 04-30-2022 Adult depression scr eening assessment Lakeshia Morillo PA-C Work Phone: Start: 04-16-2022 Comprehensive metabo lic 2000 panel - Serum or Plasma [facility] Start: 04-16-2022 Glucose [Mass/volume ] in Serum or Plasma [facility] Start: 04-16-2022 Hemoglobin A1c/Hemoglobin.total in Blood [facility] Start: 04-16-2022 Lipid panel [facility] Provid er Start: 04-16-2022 PSA screening [facility] Start: 11-20-2020 Colonoscopy Jeremy ivan MD Work Phone: Start: 11-01-2020 Adult depression scr eening assessment Jeremy Estrada MD Work Phone: Plan of Treatment Date Care Activity Detail Author Start: 05-08-2028 Lipid 1996 panel - S guerita or Plasma Lipid Screening [facility] Start: 05-08-2028 Lipid panel Lipid Screening [facility] Start: 05-08-2028 LIPID SCREEN LIPID SCREEN [facility] Start: 10-30-2027 LIPID SCREEN LIPID SCREEN [facility] Start: 04-16-2027 LIPID SCREEN LIPID SCREEN [facility] Start: 04-16-2027 PROSTATE CANCER SCRE ENING DISCUSSION PROSTATE CANCER SCREENING DISCUSSION [facility] Start: 04-16-2027 Prostate specific an tigen measurement Prostate Cancer Screening Discussion [facility] Start: 11-02-2026 LIPID SCREEN LIPID SCREEN [facility] Start: 10-31-2026 PROSTATE CANCER SCRE ENING DISCUSSION PROSTATE CANCER SCREENING DISCUSSION [facility] Start: 05-08-2026 DIABETES SCREEN DIABETES SCREEN [facility] Start: 05-08-2026 Diabetes Screening Diabetes Screenin g [facility] Start: 10-31-2025 Urine microalbumin profile [facility] Start: 10-30-2025 DIABETES SCREEN DIABETES SCREEN [facility] Start: 04-16-2025 DIABETES SCREEN DIABETES SCREEN [facility] Start: 11-02-2024 DIABETES SCREEN DIABETES SCREEN [facility] Start: 05-12-2024 ANNUAL PCP TEAM LATIN DANCE INSTRUCTOR CRISTOPHER DISEASE VISIT ANNUAL PCP TEAM CHRONIC DISEASE VISIT [facility] Start: 05-08-2024 Hepatitis B surface antibody level LDL CHOLESTEROL [facility] Start: 11-20-2023 Colonoscopy COLONOSCOPY [facility] Start: 11-20-2023 COLORECTAL CANCER SCREENING COLORECTAL CANCER SCREENING [facility] Start: 11-20-2023 Screening for malign ant neoplasm of colon [facility] Start: 11-12-2023 ANNUAL PCP TEAM LATIN DANCE INSTRUCTOR CRISTOPHER DISEASE VISIT ANNUAL PCP TEAM CHRONIC DISEASE VISIT [facility] Start: 11-12-2023 COVID-19 VACCINE (3 - Booster for Pfizer series) COVID-19 VACCINE (3 - Booster for Pfizer series) [facility] Immunizations Immunization Date Immunization Notes Care Provider Fa cinthia 10-31-2021 pneumococcal polysaccharide vaccine, 23 valent Jeremy Estrada MD Work Phone: [facility] 07-21-2021 influenza, injectabl e, quadrivalent, contains preservative Jeremy Estrada MD Work Phone: [facility] Work Phone: 07-21-2021 influenza virus vacc ine, unspecified formulation Donald Fleming MD Work Phone: [facility] 02-09-2021 COVID-19 vaccine, ag e 12+ yr (PFIZER-BIONTECH - PURPLE TOP) Jeremy Estrada MD Work Phone: [facility] Work Phone: 01-19-2021 COVID-19 vaccine, ag e 12+ yr (PFIZER-BIONTECH - PURPLE TOP) Jeremy Estrada MD Work Phone: [facility] 08-16-2020 influenza, injectabl e, quadrivalent, contains preservative Jeremy Estrada MD Work Phone: [facility] Work Phone: 11-25-2019 pneumococcal conjuga te vaccine, 13 valent Jeremy Estrada MD Work Phone: [facility] 06-24-2018 influenza, injectabl e, quadrivalent, contains preservative Jeremy Estrada MD Work Phone: [facility] 10-31-2015 influenza, injectabl e, quadrivalent, contains preservative Jeremy Estrada MD Work Phone: [facility] Work Phone: 10-31-2015 tetanus toxoid, redu dejuan diphtheria toxoid, and acellular pertussis vaccine, adsorbed Jeremy Estrada MD Work Phone: [facility] Work Phone: 07-14-2014 influenza, seasonal, injectable Jeremy Estrada MD Work Phone: [facility] Payers Date Payer Category Payer Unknown [employer] PPO [id number] 2009-Present [phone] [address] [place] [address] PPO [id number] 2009 Unknown [employer]OX[employer]NE LIND PPO [id number] 2009-Present [phone] [address] [place] [address] PPO [id number] 2009 Unknown [id number] Social History Date Type Detail Facility Start: 11-12-2022 Tobacco smoking stat [facility] Never smoked tobacco [facility] Work Phone: Start: 10-31-2021 End: 06-11-2023 Alcohol intake Current non-drinker of alcohol (finding) [facility] Start: 11-01-2020 End: 11-06-2022 History SDOH Alcohol Frequency 3 [facility] Start: 11-01-2020 End: 11-06-2022 History SDOH Alcohol Std Drinks 1 [facility] Start: 11-01-2020 History SDOH Social Connections Phone 5 [facility] Start: 11-01-2020 End: 11-06-2022 History SDOH Social Connections Get Together 2 [facility] Start: 11-01-2020 End: 11-06-2022 History SDOH Financial 4 [facility] Start: 11-01-2020 Education 12 [facility] Start: 1960 Sex Assigned At Not on file [facility] Start: 04-20-2022 End: 04-30-2022 Exposure to SARS-CoV-2 (event) Not sure [facility] Start: 11-12-2022 Tobacco use and exposure Smoke less tobacco non-user [facility] Start: 11-06-2022 History SDOH Alcohol Std Drinks 0 [facility] Start: 11-06-2022 History SDOH Physica l Activity DPW 6 [facility] Start: 11-05-2022 End: 05-12-2023 History of Social function [facility] Start: 11-05-2022 End: 05-12-2023 Social connection and isolation panel [facility] Do you belong to any clubs or organizations such as jain groups, unions, fraternal or athletic groups, or school groups? Yes [facility] Attends Club or Organization Meetings Not on file [facility] Are you now , , , , never or living with a partner? [facility] How often do you hav e 6 or more drinks on 1 occasion? Never [facility] How hard is it for y ou to pay for the very basics like food, housing, medical care, and heating Not very hard [facility] Do you feel stress - tense, restless, nervous, or anxious, or unable to sleep at night because your mind is troubled all the time - these days [OSQ] Only a little [facility] (I/We) worried whezeke er (my/our) food would run out before (I/we) got money to buy more. Sometimes true [facility] The food that (I/we) bought just didn't last, and (I/we) didn't have money to get more. Never true [facility] At any time in the p ast 12 months, were you homeless or living in detention [including now]? No [facility] Clinical Notes 02-01-2022 to 11-06-2023 Telephone Encounter - Kiki Dan - 11/06/2023 9:42 AM Donald Minor MD - 06/11/2023 10:10 AM EDTPatient Adina Valdez APRN.[facility] - 05/23/2023 11:01 AM EDT Note Date & Type Note Facility 11-06-2023 Miscellaneous Notes Patient has been identified by name and date of : Yes, Provider Jeremy Estrada MD Date 11/06/2023 Time 9:44 am Patient phones for refill(s): Requested Prescriptions Pending Prescriptions Disp Refills omeprazole (PRILOSEC) 20 mg capsule 90 capsule 1 Sig: Take 1 capsule by mouth once daily. Date of last office visit in primary care: 05/12/2024 Date of next office visit in primary care: 11/25/2023 Please advise. Thank you. Kiki Cuenca. documented in this encounter [facility] 06-11-2023 Note HNO ID: [id number] Author: Delores Ibanez RT(R) Service: Radiology Author Type: Technologist Type: Progress Notes Filed: 06/11/2023 10:32 AM Note Text: Radiology Service Progress Note PATIENT NAME: Rodney Laws DATE OF SERVICE: June 11, 2023 TIME: 10:24 AM PATIENT IDENTITY VERIFICATION COMPLETED USING TWO (2) IDENTIFIERS: Name and Date of confirmed by patient verbally. FALL SCREENING: Has the patient had 2 falls in the last year or 1 fall with injury or currently using an Ambulatory Assistive Device (Walker, Cane, Wheelchair, Crutches, etc.)? No PATIENT GENDER DATA: Male PATIENT RELEVANT IMPLANT DATA REVIEWED: Yes RADIOLOGY DEPARTMENT: General X-ray: Exam(s) Completed: Chest X-Ray PERIPHERAL IV DATA: Not applicable SIGNED BY: RT Danielle(R) June 11, 2023 10:24 AM [facility] 06-11-2023 Note HNO ID: [id number] Author: Donald Fleming MD Service: ? Author Type: Physician Type: Progress Notes Filed: 06/11/2023 10:58 AM Note Text: Patient presents with: Cough: Congestion, ST, R ear pain, diarrhea, WALLS, wheezing x1 month HPI: Feeling sick for 3 weeks. Diagnosed with URI with cough after 1 day of symptoms 05/23/23-strep, COVID, and influenza tests were negative. He and several family members are still coughing. Positive symptoms: Cough, Wheezing, Shortness of breath, Chills, fluctuating Nasal Congestion/Rhinorrhea New today: Sore throat, right Earache, Headache, Diarrhea, nausea, Negative symptoms: Vomiting, , OTC: Nyquil, Dayquil. Prescribed mucinex and tessalon. PAST MEDICAL HISTORY Diagnosis Date Benign prostatic hyperplasia with urinary hesitancy 10/31/2021 Compression fracture of L1 lumbar vertebra (HCC) 07/19/2014 Tagents comp Compression fracture of L2 ([facility]) 07/19/2014 Coronary artery disease due to lipid rich plaque 07/01/[address] Naylor, Cath 05/2018 showed EF 60 % normal LV wall motion, left main normal, LAD 30-40% stenosis, mild luminal irregularities less than 30%, Circ and RCA: no significant disease Dyslipidemia 11/19/2016 Elevated hemoglobin A1c 11/25/2019 Fall Hospatilized Family history of malignant neoplasm of gastrointestinal tract 05/15/2012 mother GERD with esophagitis 11/19/2016 History of compression fracture of spine 07/19/2014 [facility] comp: L1 and L2 History of COVID-19 10/02/2021 09/26/2021 History of DVT (deep vein thrombosis) 07/19/2014 [employer]. Has had two due to injuries Neck pain 11/19/2016 ABDULKADIR (obstructive sleep apnea) 09/04/2015 Proteinuria 11/26/[address] Martinez Renal insufficiency 11/26/2017 Stricture and stenosis of esophagus Tension-type headache, not intractable 11/19/2016 MEDICATIONS: Current Outpatient Medications Medication Sig omeprazole (PRILOSEC) 20 mg capsule Take 1 capsule by mouth once daily. lisinopril (ZESTRIL, PRINIVIL) 5 mg tablet Take 1 tablet by mouth once daily. Started per renal, Dr. Martinez aspirin, enteric coated (ASPIRIN, ENTERIC COATED) 81 mg EC tablet Take 81 mg by mouth once daily. acetaminophen (TYLENOL) 325 mg tablet Take 2 tablets by mouth every 6 hours as needed for Pain. guaiFENesin (MUCINEX) 600 mg 12 hr tablet Take 2 tablets by mouth twice daily as needed for cold/allergy symptoms. (Patient not taking: Reported on 06/11/2023) benzonatate (TESSALON PERLES) 100 mg capsule Take 2 capsules by mouth three times daily as needed. (Patient not taking: Reported on 06/11/2023) No current facility-administered medications for this visit. ALLERGIES: ALLERGIES Allergen Reactions Bee Sting Vomiting VITALS: BP 131/82 Pulse 77 Temp 36.6 ?C (97.9 ?F) Resp 18 Wt 89.2 kg (196 lb 9.6 oz) SpO2 98% BMI 29.89 kg/m? PHYSICAL EXAM: GEN: mildly ill appearing HEENT: PERRL, EOMI, conjunctiva clear Ears: canals clear. TMs without erythema, bulge, or effusion Sinuses: non-tender frontal sinus, non-tender maxillary sinuses Throat: moist mucous membranes, mild erythema, no exudate Neck: supple, no thyromegaly, no lymphadenopathy HEART: regular rate and rhythm, no murmurs LUNGS: bilateral scattered wheezes and crackles, no increased WOB Component Latest Ref Rng AND Units 05/08/2023 Hemoglobin A1C 4.3 - 5.6 % 5.3 ASSESSMENT/PLAN: 1. Subacute cough - ICD9: 786.2, ICD10: R05.2 (primary diagnosis) 2. Influenza-like illness - ICD9: 487.1, ICD10: J11.1 - XR CHEST 2V FRONTAL/LAT - no pneumonia. - suspect post-bronchitic cough and new viral URI today, differential includes COVID-19 and influenza. - Discussed supportive care treatment with home isolation, rest, cold medicine, and analgesia. - Red flags to seek further treatment include chest pain, shortness of breath, and lethargy; in the ER if severe. - COVID AND INFLUENZA A/B NAAT, ROUTINE - PREDNISONE 10 MG TABLET taper. Potential steroid side effect of elevated sugar levels. Avoid NSAID's while on steroid treatment (Aleve, Motrin, Advil, ibuprofen, or naproxen). May take acetaminophen (tylenol) as needed for pain relief. Donald Fleming MD [facility] 06-11-2023 History of Presen t illness Narrative Patient presents with: Cough: Congestion, ST, R ear pain, diarrhea, WALLS, wheezing x1 month HPI: Feeling sick for 3 weeks. Diagnosed with URI with cough after 1 day of symptoms 05/23/23-strep, COVID, and influenza tests were negative. He and several family members are still coughing. Positive symptoms: Cough, Wheezing, Shortness of breath, Chills, fluctuating Nasal Congestion/Rhinorrhea New today: Sore throat, right Earache, Headache, Diarrhea, nausea, Negative symptoms: Vomiting, , OTC: Nyquil, Dayquil. Prescribed mucinex and tessalon. PAST MEDICAL HISTORY Diagnosis Date Benign prostatic hyperplasia with urinary hesitancy 10/31/2021 Compression fracture of L1 lumbar vertebra (HCC) 07/19/2014 [employer] Compression fracture of L2 ([facility]) 07/19/2014 Coronary artery disease due to lipid rich plaque 07/01/[address] Naylor, Cath 05/2018 showed EF 60 % normal LV wall motion, left main normal, LAD 30-40% stenosis, mild luminal irregularities less than 30%, Circ and RCA: no significant disease Dyslipidemia 11/19/2016 Elevated hemoglobin A1c 11/25/2019 Fall Hospatilized Family history of malignant neoplasm of gastrointestinal tract 05/15/2012 mother GERD with esophagitis 11/19/2016 History of compression fracture of spine 07/19/2014 [facility] comp: L1 and L2 History of COVID-19 10/02/2021 09/26/2021 History of DVT (deep vein thrombosis) 07/19/2014 [employer]. Has had two due to injuries Neck pain 11/19/2016 ABDULKADIR (obstructive sleep apnea) 09/04/2015 Proteinuria 11/26/[address] Martinez Renal insufficiency 11/26/2017 Stricture and stenosis of esophagus Tension-type headache, not intractable 11/19/2016 MEDICATIONS: Current Outpatient Medications Medication Sig omeprazole (PRILOSEC) 20 mg capsule Take 1 capsule by mouth once daily. lisinopril (ZESTRIL, PRINIVIL) 5 mg tablet Take 1 tablet by mouth once daily. Started per renal, Dr. Martinez aspirin, enteric coated (ASPIRIN, ENTERIC COATED) 81 mg EC tablet Take 81 mg by mouth once daily. acetaminophen (TYLENOL) 325 mg tablet Take 2 tablets by mouth every 6 hours as needed for Pain. guaiFENesin (MUCINEX) 600 mg 12 hr tablet Take 2 tablets by mouth twice daily as needed for cold/allergy symptoms. (Patient not taking: Reported on 06/11/2023) benzonatate (TESSALON PERLES) 100 mg capsule Take 2 capsules by mouth three times daily as needed. (Patient not taking: Reported on 06/11/2023) No current facility-administered medications for this visit. ALLERGIES: ALLERGIES Allergen Reactions Bee Sting Vomiting VITALS: BP 131/82 Pulse 77 Temp 36.6 C (97.9 F) Resp 18 Wt 89.2 kg (196 lb 9.6 oz) SpO2 98% BMI 29.89 kg/m PHYSICAL EXAM: GEN: mildly ill appearing HEENT: PERRL, EOMI, conjunctiva clear Ears: canals clear. TMs without erythema, bulge, or effusion Sinuses: non-tender frontal sinus, non-tender maxillary sinuses Throat: moist mucous membranes, mild erythema, no exudate Neck: supple, no thyromegaly, no lymphadenopathy HEART: regular rate and rhythm, no murmurs LUNGS: bilateral scattered wheezes and crackles, no increased WOB Component Latest Ref Rng & Units 05/08/2023 Hemoglobin A1C 4.3 - 5.6 % 5.3 ASSESSMENT/PLAN: 1. Subacute cough - ICD9: 786.2, ICD10: R05.2 (primary diagnosis) 2. Influenza-like illness - ICD9: 487.1, ICD10: J11.1 - XR CHEST 2V FRONTAL/LAT - no pneumonia. - suspect post-bronchitic cough and new viral URI today, differential includes COVID-19 and influenza. - Discussed supportive care treatment with home isolation, rest, cold medicine, and analgesia. - Red flags to seek further treatment include chest pain, shortness of breath, and lethargy; in the ER if severe. - COVID & INFLUENZA A/B NAAT, ROUTINE - PREDNISONE 10 MG TABLET taper. Potential steroid side effect of elevated sugar levels. Avoid NSAID's while on steroid treatment (Aleve, Motrin, Advil, ibuprofen, or naproxen). May take acetaminophen (tylenol) as needed for pain relief. Donald Fleming MD documented in this encounter [facility] 05-23-2023 Note HNO ID: [id number] Author: Adina Fowler APRN.[facility] PROSTHOD[employer]IST Service: ? Author Type: Nurse Practitioner Type: Progress Notes Filed: 05/23/2023 11:13 AM Note Text: Subjective The history is provided by the patient. No speech language pathologist prn was used. HPI Rodney Laws is a 63 year old male who presents today for CC of cough, congestion and sore throat that started yesterday. He has used alkaseltzer plus. Exposure family members ill, no known exposure to strep or covid BP 111/66 Pulse 78 Temp 36.4 ?C (97.6 ?F) Resp 16 Ht 172.7 cm (5' 8 ) Wt 88 kg (194 lb) SpO2 96% BMI 29.50 kg/m? Social History Tobacco Use Smoking status: Never Smokeless tobacco: Never Vaping Use Vaping Use: Never used Substance Use Topics Alcohol use: No Drug use: No PAST MEDICAL HISTORY Diagnosis Date Benign prostatic hyperplasia with urinary hesitancy 10/31/2021 Compression fracture of L1 lumbar vertebra (HCC) 07/19/2014 [employer]'s comp Compression fracture of L2 (HCC) 07/19/2014 Coronary artery disease due to lipid rich plaque 07/01/[address] Naylor, Cath 05/2018 showed EF 60 % normal LV wall motion, left main normal, LAD 30-40% stenosis, mild luminal irregularities less than 30%, Circ and RCA: no significant disease Dyslipidemia 11/19/2016 Elevated hemoglobin A1c 11/25/2019 Fall Hospatilized Family history of malignant neoplasm of gastrointestinal tract 05/15/2012 mother GERD with esophagitis 11/19/2016 History of compression fracture of spine 07/19/2014 Workman's comp: L1 and L2 History of COVID-19 10/02/2021 09/26/2021 History of DVT (deep vein thrombosis) 07/19/2014 [employer] comp. Has had two due to injuries Neck pain 11/19/2016 ABDULKADIR (obstructive sleep apnea) 09/04/2015 Proteinuria 11/26/[address] Martinez Renal insufficiency 11/26/2017 Stricture and stenosis of esophagus Tension-type headache, not intractable 11/19/2016 I have confirmed and edited as necessary, the [facility] Review of Systems Constitutional: Positive for malaise/fatigue. Negative for chills and fever. HENT: Positive for congestion. Negative for ear pain, sinus pain and sore throat. Respiratory: Positive for cough. Negative for sputum production, shortness of breath and wheezing. Cardiovascular: Negative for chest pain. Gastrointestinal: Negative for abdominal pain, diarrhea, nausea and vomiting. Musculoskeletal: Negative for myalgias. Neurological: Negative for headaches. Objective Physical Exam Vitals and nursing note reviewed. Constitutional: Appearance: He is not toxic-appearing. HENT: Head: Normocephalic and atraumatic. Right Ear: Tympanic membrane, ear canal and external ear normal. Left Ear: Tympanic membrane, ear canal and external ear normal. Nose: Mucosal edema, congestion and rhinorrhea present. Right Sinus: No maxillary sinus tenderness or frontal sinus tenderness. Left Sinus: No maxillary sinus tenderness or frontal sinus tenderness. Mouth/Throat: Pharynx: Uvula midline. No oropharyngeal exudate or posterior oropharyngeal erythema. Tonsils: No tonsillar abscesses. Cardiovascular: Rate and Rhythm: Normal rate and regular rhythm. Heart sounds: Normal heart sounds. Pulmonary: Effort: Pulmonary effort is normal. Breath sounds: Normal breath sounds. No decreased breath sounds, wheezing, rhonchi or rales. Lymphadenopathy: Head: Right side of head: No submental, submandibular, tonsillar or preauricular adenopathy. Left side of head: No submental, submandibular, tonsillar or preauricular adenopathy. Cervical: No cervical adenopathy. Right cervical: No superficial cervical adenopathy. Left cervical: No superficial cervical adenopathy. Neurological: Mental Status: He is alert. ASSESSMENT/PLAN: 1. URI with cough and congestion - ICD9: 465.9, ICD10: J06.9 - Discussed viral etiology and rationale for treatment. - Symptomatic treatment with prn analgesia - Supportive care with fluids and rest Home isolation Testing ordered Comfort measures discussed - see patient instructions. When to seek higher level of care Notified in 12-24 hours with results, available on mychart - COVID AND INFLUENZA A/B NAAT, ROUTINE Diagnosis and treatment plan were discussed and questions were answered to the patient's satisfaction. Pt acknowledged understanding of concepts and follow up plan. Specific signs and symptoms that would indicate the need for higher level of care were discussed in detail warranting prompt ER evaluation. Adina Fowler APRN.[facility] 05-23-2023 Instructions Adina Fowler APRN.ARNIE - 05/23/2023 11:09 AM EDT covid and influenza test ordered You will be notified in 12-24 hours, results available on MyChart Home isolation until results are back Rest, increase water intake Motrin or Tylenol as needed for fever or pain. Salt water gargles, chloraseptic spray or lozenges as needed for sore throat. Warm beverages, honey. Nasal saline spray as needed Cool mist humidifier at night Tylenol (generic acetaminophen) 500 mg-2 tabs every 8 hrs. as needed for fever and aches Ibuprofen 600 mg (3-200mg tablets) every 6 hours -Mucinex (generic is fine) Guaifenesin 1200 mg twice daily to help with cough and to thin out mucus * Seek medical care immediately, call 911, go to ER if you have chest pain, difficulty breathing, shortness of breath, inability to swallow. documented in this encounter [facility] 05-23-2023 History of Presen t illness Narrative Subjective The history is provided by the patient. No speech language pathologist prn was used. HPI Rodney Laws is a 63 year old male who presents today for CC of cough, congestion and sore throat that started yesterday. He has used alkaseltzer plus. Exposure family members ill, no known exposure to strep or covid BP 111/66 Pulse 78 Temp 36.4 C (97.6 F) Resp 16 Ht 172.7 cm (5' 8 ) Wt 88 kg (194 lb) SpO2 96% BMI 29.50 kg/m Social History Tobacco Use Smoking status: Never Smokeless tobacco: Never Vaping Use Vaping Use: Never used Substance Use Topics Alcohol use: No Drug use: No PAST MEDICAL HISTORY Diagnosis Date Benign prostatic hyperplasia with urinary hesitancy 10/31/2021 Compression fracture of L1 lumbar vertebra (HCC) 07/19/2014 Workman's comp Compression fracture of L2 (HCC) 07/19/2014 Coronary artery disease due to lipid rich plaque 07/01/[address] Naylor, Cath 05/2018 showed EF 60 % normal LV wall motion, left main normal, LAD 30-40% stenosis, mild luminal irregularities less than 30%, Circ and RCA: no significant disease Dyslipidemia 11/19/2016 Elevated hemoglobin A1c 11/25/2019 Fall Hospatilized Family history of malignant neoplasm of gastrointestinal tract 05/15/2012 mother GERD with esophagitis 11/19/2016 History of compression fracture of spine 07/19/2014 Workman's comp: L1 and L2 History of COVID-19 10/02/2021 09/26/2021 History of DVT (deep vein thrombosis) 07/19/2014 Workman's comp. Has had two due to injuries Neck pain 11/19/2016 ABDULKADIR (obstructive sleep apnea) 09/04/2015 Proteinuria 11/26/[address] Martinez Renal insufficiency 11/26/2017 Stricture and stenosis of esophagus Tension-type headache, not intractable 11/19/2016 I have confirmed and edited as necessary, the [facility] Review of Systems Constitutional: Positive for malaise/fatigue. Negative for chills and fever. HENT: Positive for congestion. Negative for ear pain, sinus pain and sore throat. Respiratory: Positive for cough. Negative for sputum production, shortness of breath and wheezing. Cardiovascular: Negative for chest pain. Gastrointestinal: Negative for abdominal pain, diarrhea, nausea and vomiting. Musculoskeletal: Negative for myalgias. Neurological: Negative for headaches. Objective Physical Exam Vitals and nursing note reviewed. Constitutional: Appearance: He is not toxic-appearing. HENT: Head: Normocephalic and atraumatic. Right Ear: Tympanic membrane, ear canal and external ear normal. Left Ear: Tympanic membrane, ear canal and external ear normal. Nose: Mucosal edema, congestion and rhinorrhea present. Right Sinus: No maxillary sinus tenderness or frontal sinus tenderness. Left Sinus: No maxillary sinus tenderness or frontal sinus tenderness. Mouth/Throat: Pharynx: Uvula midline. No oropharyngeal exudate or posterior oropharyngeal erythema. Tonsils: No tonsillar abscesses. Cardiovascular: Rate and Rhythm: Normal rate and regular rhythm. Heart sounds: Normal heart sounds. Pulmonary: Effort: Pulmonary effort is normal. Breath sounds: Normal breath sounds. No decreased breath sounds, wheezing, rhonchi or rales. Lymphadenopathy: Head: Right side of head: No submental, submandibular, tonsillar or preauricular adenopathy. Left side of head: No submental, submandibular, tonsillar or preauricular adenopathy. Cervical: No cervical adenopathy. Right cervical: No superficial cervical adenopathy. Left cervical: No superficial cervical adenopathy. Neurological: Mental Status: He is alert. ASSESSMENT/PLAN: 1. URI with cough and congestion - ICD9: 465.9, ICD10: J06.9 - Discussed viral etiology and rationale for treatment. - Symptomatic treatment with prn analgesia - Supportive care with fluids and rest Home isolation Testing ordered Comfort measures discussed - see patient instructions. When to seek higher level of care Notified in 12-24 hours with results, available on mychart - COVID & INFLUENZA A/B NAAT, ROUTINE Diagnosis and treatment plan were discussed and questions were answered to the patient's satisfaction. Pt acknowledged understanding of concepts and follow up plan. Specific signs and symptoms that would indicate the need for higher level of care were discussed in detail warranting prompt ER evaluation. Adina Fowler APRN.[employer] PROSTHODONTIST documented in this encounter [facility] 05-12-2023 Note HNO ID: [id number] Author: Lakeshia Morillo PA-C Service: ? Author Type: Physician Crusher Feeder Type: Progress Notes Filed: 05/12/2023 8:23 AM Note Text: Chief Complaint Patient presents with: 6 Month Exam HPI Rodney Laws is a 63 year old male who presents here today for Chronic Medical Conditions.. Patient with hx of CAD, ABDULKADIR, GERD, elevated a1c, hyperlipidemia, and those as below. Overall patient doing well. No concerns Past medical history, appointments, medications, allergies reviewed. Previous Medical History PAST MEDICAL HISTORY Diagnosis Date Benign prostatic hyperplasia with urinary hesitancy 10/31/2021 Compression fracture of L1 lumbar vertebra (HCC) 07/19/2014 Workman's comp Compression fracture of L2 (HCC) 07/19/2014 Coronary artery disease due to lipid rich plaque 07/01/[address] Naylor, Cath 05/2018 showed EF 60 % normal LV wall motion, left main normal, LAD 30-40% stenosis, mild luminal irregularities less than 30%, Circ and RCA: no significant disease Dyslipidemia 11/19/2016 Elevated hemoglobin A1c 11/25/2019 Fall Hospatilized Family history of malignant neoplasm of gastrointestinal tract 05/15/2012 mother GERD with esophagitis 11/19/2016 History of compression fracture of spine 07/19/2014 Workman's comp: L1 and L2 History of COVID-19 10/02/2021 09/26/2021 History of DVT (deep vein thrombosis) 07/19/2014 Workman's comp. Has had two due to injuries Neck pain 11/19/2016 ABDULKADIR (obstructive sleep apnea) 09/04/2015 Proteinuria 11/26/[address] Martinez Renal insufficiency 11/26/2017 Stricture and stenosis of esophagus Tension-type headache, not intractable 11/19/2016 Previous Surgical History PAST SURGICAL HISTORY Procedure Laterality Date APPENDECTOMY COLONOSCOPY FLX DX W/COLLJ SPEC WHEN PFRMD 06/16/2012 Colonoscopy, repeat 5 yrs COLONOSCOPY FLX DX W/COLLJ SPEC WHEN PFRMD 12/11/[address] Short, repeat 5 yrs COLONOSCOPY GEN ANES 11/20/2020 Repeat in 3 years EGD 11/06/2016 for esophageal narrowing and had dialation. per Dr. Zamora EGD 11/20/2020 ESOPHAGOGASTRODUODENOSCOPY TRANSORAL DIAGNOSTIC 10/19/2012 EGD ESOPHAGOGASTRODUODENOSCOPY TRANSORAL DIAGNOSTIC 12/24/2012 EGD ESOPHAGOGASTRODUODENOSCOPY TRANSORAL DIAGNOSTIC 12/11/2015 EGD HEART CATHETERIZATION 07/2018 minor disease, per Dr. Naylor SEPTOPLASTY/SUBMUCOUS RESECJ W/WO CARTILAGE GRF Septoplasty and uvulectomy TONSILLECTOMY PRIMARY/SECONDARY Tonsillectomy Family History FAMILY HISTORY Problem Relation Age of Onset Cancer Mother Liver ca. Colon Cancer Mother Alzheimer's Disease Father Stroke Father TIA's other (bowel problems) Father other (DVT's legs) Brother Patient Allergies ALLERGIES Allergen Reactions Bee Sting Vomiting Current Medications Current Outpatient Medications on File Prior to Visit Medication Sig omeprazole (PRILOSEC) 20 mg capsule Take 1 capsule by mouth once daily. lisinopril (ZESTRIL, PRINIVIL) 5 mg tablet Take 1 tablet by mouth once daily. Started per renalDr. Martinez aspirin, enteric coated (ASPIRIN, ENTERIC COATED) 81 mg EC tablet Take 81 mg by mouth once daily. acetaminophen (TYLENOL) 325 mg tablet Take 2 tablets by mouth every 6 hours as needed for Pain. benzonatate (TESSALON PERLE) 100 mg capsule Take 2 capsules by mouth three times daily as needed. No current facility-administered medications on file prior to visit. Social History Social History Tobacco Use Smoking status: Never Smokeless tobacco: Never Vaping Use Vaping Use: Never used Substance Use Topics Alcohol use: No Drug use: No Review of Symptoms REVIEW OF SYSTEMS GENERAL: No weight loss, malaise or fevers NECK: Negative for lumps, goiter, pain and significant neck swelling RESPIRATORY: Negative for cough, hemoptysis, wheezing, COPD, dyspnea or shortness of breath CARDIOVASCULAR: Negative for chest pain, leg swelling, hypertension, CHF or palpitations NEURO: No history of worsening headaches, syncope, paralysis, seizures or tremors EXAM: BP 100/70 (BP Site: Left Arm, BP Position: Sitting, BP Cuff Size: Large Adult) Pulse 80 Temp 36.6 ?C (97.9 ?F) Resp 18 Wt 86.6 kg (191 lb) BMI 29.04 kg/m? General Appearance: Well appearing, alert, in no acute distress, well-hydrated, well nourished.. Neck: Supple, no adenopathy; thyroid symmetric, normal size, no bruits. Lungs: Lungs clear to auscultation. No wheezing, rhonchi, rales.. Heart: RRR without murmur, gallop, or rubs. No ectopy. Extremities: No deformities, edema, skin discoloration, clubbing or cyanosis. Good capillary refill. . Peripheral Pulses: Normal. Health Maintenance List SHINGRIX VACCINE(1 of 2) due on 11/12/2023 COVID-19 VACCINE(3 - Pfizer series) due on 11/12/2023 INFLUENZA(1) due on 05/30/2023 ANNUAL PCP TEAM CHRONIC DISEASE VISIT due on 11/12/2023 COLORECTAL CANCER SCREENING due on 11/20/2023 LDL CHOLESTEROL (more content not included)... [facility] 01-14-2023 Note HNO ID: [id number] Author: Adina Fowler APRN.MAXILLOFACIAL PROSTHODONTIST Service: ? Author Type: Nurse Practitioner Type: Progress Notes Filed: 01/14/2023 2:01 PM Note Text: Subjective The history is provided by the patient. No speech language pathologist prn was used. HPI Rodney Laws is a 62 year old male who presents today for CC of sore throat, cough and congestion for 3 days. He is also having ear pressure and a runny nose. He denies any nausea, vomiting or diarrhea. He denies any known exposure to covid, other viral illnesses, or strep. He has used generic OTC cold medication unsure of name. BP 136/80 Pulse 82 Temp 36.8 ?C (98.2 ?F) (Tympanic) Resp 18 Wt 85.5 kg (188 lb 9.6 oz) SpO2 98% BMI 28.68 kg/m? Social History Tobacco Use Smoking status: Never Smokeless tobacco: Never Vaping Use Vaping Use: Never used Substance Use Topics Alcohol use: No Drug use: No PAST MEDICAL HISTORY Diagnosis Date Benign prostatic hyperplasia with urinary hesitancy 10/31/2021 Compression fracture of L1 lumbar vertebra (HCC) 07/19/2014 [employer]ents comp Compression fracture of L2 (HCC) 07/19/2014 Coronary artery disease due to lipid rich plaque 07/01/[address] Naylor, Cath 05/2018 showed EF 60 % normal LV wall motion, left main normal, LAD 30-40% stenosis, mild luminal irregularities less than 30%, Circ and RCA: no significant disease Dyslipidemia 11/19/2016 Elevated hemoglobin A1c 11/25/2019 Fall Hospatilized Family history of malignant neoplasm of gastrointestinal tract 05/15/2012 mother GERD with esophagitis 11/19/2016 History of compression fracture of spine 07/19/2014 [employer] comp: L1 and L2 History of COVID-19 10/02/2021 09/26/2021 History of DVT (deep vein thrombosis) 07/19/2014 [employer] comp. Has had two due to injuries Neck pain 11/19/2016 ABDULKADIR (obstructive sleep apnea) 09/04/2015 Proteinuria 11/26/[address] Martinez Renal insufficiency 11/26/2017 Stricture and stenosis of esophagus Tension-type headache, not intractable 11/19/2016 I have confirmed and edited as necessary, the [facility] Review of Systems Constitutional: Positive for chills and malaise/fatigue. Negative for fever. HENT: Positive for congestion, sinus pain and sore throat. Negative for ear pain (pressure). Respiratory: Positive for cough. Negative for sputum production, shortness of breath and wheezing. Cardiovascular: Negative for chest pain. Gastrointestinal: Negative for abdominal pain, diarrhea, nausea and vomiting. Musculoskeletal: Positive for myalgias. Neurological: Negative for headaches. Objective Physical Exam Vitals and nursing note reviewed. Constitutional: Appearance: He is not toxic-appearing. HENT: Head: Normocephalic and atraumatic. Right Ear: Tympanic membrane, ear canal and external ear normal. Left Ear: Tympanic membrane, ear canal and external ear normal. Nose: Mucosal edema, congestion and rhinorrhea present. Right Sinus: No maxillary sinus tenderness or frontal sinus tenderness. Left Sinus: No maxillary sinus tenderness or frontal sinus tenderness. Mouth/Throat: Pharynx: Uvula midline. No oropharyngeal exudate or posterior oropharyngeal erythema. Tonsils: No tonsillar abscesses. Cardiovascular: Rate and Rhythm: Normal rate and regular rhythm. Heart sounds: Normal heart sounds. Pulmonary: Effort: Pulmonary effort is normal. Breath sounds: Normal breath sounds. No decreased breath sounds, wheezing, rhonchi or rales. Lymphadenopathy: Head: Right side of head: No submental, submandibular, tonsillar or preauricular adenopathy. Left side of head: No submental, submandibular, tonsillar or preauricular adenopathy. Cervical: No cervical adenopathy. Right cervical: No superficial cervical adenopathy. Left cervical: No superficial cervical adenopathy. Neurological: Mental Status: He is alert. ASSESSMENT/PLAN: 1. Sore throat - ICD9: 462, ICD10: J02.9 (primary diagnosis) - suspect viral - Alere Strep Test negative, no culture pending - STREP A MOLECULAR (POC) 2. URI with cough and congestion - ICD9: 465.9, ICD10: J06.9 - Discussed viral etiology and rationale for treatment. - Alere Strep Test negative, no culture pending - Symptomatic treatment with prn analgesia - Supportive care with fluids and rest Home isolation Testing ordered Comfort measures discussed - see patient instructions. When to seek higher level of care Notified in 12-24 hours with results, available on har2018 CORONAVIRUS Diagnosis and treatment plan were discussed and questions were answered to the patient's satisfaction. Pt acknowledged understanding of concepts and follow up plan. Specific signs and symptoms that would indicate the need for higher level of care were discussed in detail warranting prompt ER evaluation. Adina Fowler APRN.[facility] 12-24-2022 Miscellaneous Notes Patient was notified and will do recommendation by pcp of baby shampoo Nan Dudley Ma Let patient know I went back to see what this steroid was prescribed for and see he saw an LACY in 04/2021 and placed on this for itchy scaly eye lids. 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 The treatment of choice in not a routine steroid cream which can actually cause thinning the the skin on the eye lids. The treatment of choice is using Bony and Bony baby shampoo on a wash cloth daily and gently scrubbing the eye lids. Disp Refills Start End triamcinolone (KENALOG) 0.025 % cream 15 g 1 05/07/2021 06/06/2021 Sig: Apply to affected area twice daily. Sent to pharmacy as: triamcinolone (KENALOG) 0.025 % cream Patient would like this to be sent to [facility] in [place]. Thank you. Mimi Carias Pss documented in this encounter [facility] 11-12-2022 Note HNO ID: [id number] Author: Jeremy Estrada MD Service: ? Author Type: Physician Type: Progress Notes Filed: 11/12/2022 8:42 AM Note Text: Chief Complaint No chief complaint on file. HPI Rodney Laws is a 62 year old male who presents here today for Physical. Patient with hx of CAD, HLP, ABDULKADIR, Elevated a1c, renal insuficiency and those as below. Patient has been doing well. With all the weight loss he has not used his CPAP in several years. No new issues or concerns. is recovering from breast surgery for cancer and post op infection. Past medical history, appointments, medications, allergies reviewed. Previous Medical History PAST MEDICAL HISTORY Diagnosis Date Compression fracture of L1 lumbar vertebra (HCC) 07/19/2014 Workman's comp Compression fracture of L2 (HCC) 07/19/2014 Coronary artery disease due to lipid rich plaque 07/01/[address] Naylor, Cath 05/2018 showed EF 60 % normal LV wall motion, left main normal, LAD 30-40% stenosis, mild luminal irregularities less than 30%, Circ and RCA: no significant disease Dyslipidemia 11/19/2016 Elevated hemoglobin A1c 11/25/2019 Fall Hospatilized Family history of malignant neoplasm of gastrointestinal tract 05/15/2012 mother GERD with esophagitis 11/19/2016 History of compression fracture of spine 07/19/2014 [employer] comp: L1 and L2 History of COVID-19 10/02/2021 09/26/2021 History of DVT (deep vein thrombosis) 07/19/2014 [employer] comp. Has had two due to injuries Neck pain 11/19/2016 ABDULKADIR (obstructive sleep apnea) 09/04/2015 Proteinuria 11/26/[address] Martinez Renal insufficiency 11/26/2017 Stricture and stenosis of esophagus Tension-type headache, not intractable 11/19/2016 Previous Surgical History PAST SURGICAL HISTORY Procedure Laterality Date APPENDECTOMY COLONOSCOPY FLX DX W/COLLJ SPEC WHEN PFRMD 06/16/2012 Colonoscopy, repeat 5 yrs COLONOSCOPY FLX DX W/COLLJ SPEC WHEN PFRMD 12/11/[address] Short, repeat 5 yrs COLONOSCOPY GEN ANES 11/20/2020 Repeat in 3 years EGD 11/06/2016 for esophageal narrowing and had dialation. per Dr. Zamora EGD 11/20/2020 ESOPHAGOGASTRODUODENOSCOPY TRANSORAL DIAGNOSTIC 10/19/2012 EGD ESOPHAGOGASTRODUODENOSCOPY TRANSORAL DIAGNOSTIC 12/24/2012 EGD ESOPHAGOGASTRODUODENOSCOPY TRANSORAL DIAGNOSTIC 12/11/2015 EGD HEART CATHETERIZATION 07/2018 minor disease, per Dr. Naylor SEPTOPLASTY/SUBMUCOUS RESECJ W/WO CARTILAGE GRF Septoplasty and uvulectomy TONSILLECTOMY PRIMARY/SECONDARY Tonsillectomy Family History FAMILY HISTORY Problem Relation Age of Onset Cancer Mother Liver ca. Colon Cancer Mother Alzheimer's Disease Father Stroke Father TIA's other (bowel problems) Father other (DVT's legs) Brother Patient Allergies ALLERGIES Allergen Reactions Bee Sting Vomiting Current Medications Current Outpatient Medications on File Prior to Visit Medication Sig omeprazole (PRILOSEC) 20 mg capsule Take 1 capsule by mouth once daily. lisinopril (ZESTRIL, PRINIVIL) 5 mg tablet Take 1 tablet by mouth once daily. Started per renal, Dr. Martinez Benzonatate 200 mg capsule Take 1 capsule by mouth three times daily as needed. aspirin, enteric coated (LO-DOSE ASPIRIN) 81 mg EC tablet Take 81 mg by mouth once daily. CPAP Continue autoPAP 5-20 cmH2O, mask, tubing, filters, heated humidity, lifetime supplies. Dx: ABDULKADIR acetaminophen (TYLENOL) 325 mg tablet Take 2 tablets by mouth every 6 hours as needed for Pain. No current facility-administered medications on file prior to visit. Social History Social History Tobacco Use Smoking status: Never Smokeless tobacco: Never Vaping Use Vaping Use: Never used Substance Use Topics Alcohol use: No Drug use: No Review of Symptoms REVIEW OF SYSTEMS GENERAL: No weight loss, malaise or fevers HEENT: Negative for frequent or significant headaches, No changes in hearing or vision, no nose bleeds or other nasal problems NECK: Negative for lumps, goiter, pain and significant neck swelling RESPIRATORY: Negative for hemoptysis, wheezing, COPD, dyspnea or shortness of breath. Has an occasional cough with clear/white mucus. CARDIOVASCULAR: Negative for chest pain, leg swelling, hypertension, CHF or palpitations GI: No nausea, vomiting, or diarrhea, No heartburn or reflux symptoms, and with his hemorrhoids he gets some blood with whipping. : No history of dysuria, blood. Seems slower stream. Up once or twice. MUSCULOSKELETAL: Negative for joint pain or swelling, back pain or muscle pain SKIN: Negative for lesions, rash, and itching PSYCH: Negative for sleep disturbance, mood disorder and recent psychosocial stressors HEMATOLOGY/LYMPHOLOGY: Negative for prolonged bleeding, bruising easily or swollen nodes ENDOCRINE: Negative for cold or heat intolerance, polyuria, polydipsia and goiter NEURO: No history of headaches, syncope, paralysis, seizures or (more content not included)... [facility] 11-12-2022 Instructions Jeremy Estrada MD - 11/12/2022 8:14 AM EST If you want to get the shingrix vaccine for the prevention of shingles please check with insurance to see if covered. You can try over the counter Saw palmetto for the prostate if you wish. Please get labs done on or after 05/02/2023 prior to your next visit. documented in this encounter [facility] 11-12-2022 History of Presen t illness Narrative Chief Complaint No chief complaint on file. SHREYA Laws is a 62 year old male who presents here today for Physical. Patient with hx of CAD, HLP, ABDULKADIR, Elevated a1c, renal insuficiency and those as below. Patient has been doing well. With all the weight loss he has not used his CPAP in several years. No new issues or concerns. is recovering from breast surgery for cancer and post op infection. Past medical history, appointments, medications, allergies reviewed. Previous Medical History PAST MEDICAL HISTORY Diagnosis Date Compression fracture of L1 lumbar vertebra (HCC) 07/19/2014 Tagents comp Compression fracture of L2 (HCC) 07/19/2014 Coronary artery disease due to lipid rich plaque 07/01/[address] Naylor, Cath 05/2018 showed EF 60 % normal LV wall motion, left main normal, LAD 30-40% stenosis, mild luminal irregularities less than 30%, Circ and RCA: no significant disease Dyslipidemia 11/19/2016 Elevated hemoglobin A1c 11/25/2019 Fall Hospatilized Family history of malignant neoplasm of gastrointestinal tract 05/15/2012 mother GERD with esophagitis 11/19/2016 History of compression fracture of spine 07/19/2014 [facility] comp: L1 and L2 History of COVID-19 10/02/2021 09/26/2021 History of DVT (deep vein thrombosis) 07/19/2014 [facility] comp. Has had two due to injuries Neck pain 11/19/2016 ABDULKADIR (obstructive sleep apnea) 09/04/2015 Proteinuria 11/26/[address] Martinez Renal insufficiency 11/26/2017 Stricture and stenosis of esophagus Tension-type headache, not intractable 11/19/2016 Previous Surgical History PAST SURGICAL HISTORY Procedure Laterality Date APPENDECTOMY COLONOSCOPY FLX DX W/COLLJ SPEC WHEN PFRMD 06/16/2012 Colonoscopy, repeat 5 yrs COLONOSCOPY FLX DX W/COLLJ SPEC WHEN PFRMD 12/11/[address] Short, repeat 5 yrs COLONOSCOPY GEN ANES 11/20/2020 Repeat in 3 years EGD 11/06/2016 for esophageal narrowing and had dialation. per Dr. Zamora EGD 11/20/2020 ESOPHAGOGASTRODUODENOSCOPY TRANSORAL DIAGNOSTIC 10/19/2012 EGD ESOPHAGOGASTRODUODENOSCOPY TRANSORAL DIAGNOSTIC 12/24/2012 EGD ESOPHAGOGASTRODUODENOSCOPY TRANSORAL DIAGNOSTIC 12/11/2015 EGD HEART CATHETERIZATION 07/2018 minor disease, per Dr. Naylor SEPTOPLASTY/SUBMUCOUS RESECJ W/WO CARTILAGE GRF Septoplasty and uvulectomy TONSILLECTOMY PRIMARY/SECONDARY <AGE 13 Tonsillectomy Family History FAMILY HISTORY Problem Relation Age of Onset Cancer Mother Liver ca. Colon Cancer Mother Alzheimer's Disease Father Stroke Father TIA's other (bowel problems) Father other (DVT's legs) Brother Patient Allergies ALLERGIES Allergen Reactions Bee Sting Vomiting Current Medications Current Outpatient Medications on File Prior to Visit Medication Sig omeprazole (PRILOSEC) 20 mg capsule Take 1 capsule by mouth once daily. lisinopril (ZESTRIL, PRINIVIL) 5 mg tablet Take 1 tablet by mouth once daily. Started per renal, Dr. Martinez Benzonatate 200 mg capsule Take 1 capsule by mouth three times daily as needed. aspirin, enteric coated (LO-DOSE ASPIRIN) 81 mg EC tablet Take 81 mg by mouth once daily. CPAP Continue autoPAP 5-20 cmH2O, mask, tubing, filters, heated humidity, lifetime supplies. Dx: ABDULKADIR acetaminophen (TYLENOL) 325 mg tablet Take 2 tablets by mouth every 6 hours as needed for Pain. No current facility-administered medications on file prior to visit. Social History Social History Tobacco Use Smoking status: Never Smokeless tobacco: Never Vaping Use Vaping Use: Never used Substance Use Topics Alcohol use: No Drug use: No Review of Symptoms REVIEW OF SYSTEMS GENERAL: No weight loss, malaise or fevers HEENT: Negative for frequent or significant headaches, No changes in hearing or vision, no nose bleeds or other nasal problems NECK: Negative for lumps, goiter, pain and significant neck swelling RESPIRATORY: Negative for hemoptysis, wheezing, COPD, dyspnea or shortness of breath. Has an occasional cough with clear/white mucus. CARDIOVASCULAR: Negative for chest pain, leg swelling, hypertension, CHF or palpitations GI: No nausea, vomiting, or diarrhea, No heartburn or reflux symptoms, and with his hemorrhoids he gets some blood with whipping. : No history of dysuria, blood. Seems slower stream. Up once or twice. MUSCULOSKELETAL: Negative for joint pain or swelling, back pain or muscle pain SKIN: Negative for lesions, rash, and itching PSYCH: Negative for sleep disturbance, mood disorder and recent psychosocial stressors HEMATOLOGY/LYMPHOLOGY: Negative for prolonged bleeding, bruising easily or swollen nodes ENDOCRINE: Negative for cold or heat intolerance, polyuria, polydipsia and goiter NEURO: No history of headaches, syncope, paralysis, seizures or tremors EXAM: BP 124/78 Pulse 80 Resp 14 Ht 172.7 cm (5' 8 ) Wt 84.4 kg (186 lb) BMI 28.28 kg/m Last 4 Encounter Wt Readings: Date: Wt: 11/12/2022 84.4 kg (186 lb) 04/30/2022 80.3 kg (177 lb) 10/31/2021 80.7 kg (178 lb) 09/26/2021 81.2 kg (179 lb) General Appearance: Well appearing, alert, in no acute distress, well-hydrated, well nourished.. Skin: Skin color, texture, turgor normal, no suspicious rashes or lesions. Head: Normocephalic, no masses, lesions, tenderness or abnormalities. Eyes: Anicteric sclera. Pupils are equally round and reactive to light. Extraocular movements are intact. . Ears: External ears, TM's normal, canals clear. Neck: Supple, no adenopathy; thyroid symmetric, normal size, no bruits. Lungs: Lungs clear to auscultation. No wheezing, rhonchi, rales.. Heart: RRR without murmur, gallop, or rubs. No ectopy. Abdomen: Normal abdominal exam, Abdomen soft, non-tender. Bowel sounds normal. No masses, organomegaly. Extremities: No deformities, edema, skin discoloration, clubbing or cyanosis. Good capillary refill. . Musculoskeletal: No joint swelling, deformity, or tenderness. Muscle strength normal. Peripheral Pulses: Normal. Neurologic: Gait normal. Reflexes normal and symmetric. Sensation to light touch and crainal nerves 2-12 intact.. Genitalia: Normal, Penis normal. No urethral discharge. Scrotum normal to palpation. No hernia.. Rectal: Normal exam. Prostate slightly enlarged but smooth firm capsule. Health Maintenance List SHINGRIX VACCINE(1 of 2) Never done COVID-19 VACCINE(3 - Booster for Pfizer series) due on 04/06/2021 INFLUENZA(1) due on 05/30/2022 DEPRESSION ASSESSMENT Never done ANNUAL PCP TEAM CHRONIC DISEASE VISIT due on 04/30/2023 LDL CHOLESTEROL due on 10/30/2023 COLORECTAL CANCER SCREENING due on 11/20/2023 DIABETES SCREEN due on 10/30/2025 DTAP,TDAP,TD(2 - Td or Tdap) due on 10/31/2025 PROSTATE CANCER SCREENING DISCUSSION due on 04/16/2027 LIPID SCREEN due on 10/30/2027 HEPATITIS C SCREENING Completed HIV SCREENING Discontinued Data reviewed Component Latest Ref Rng & Units 04/16/2022 10/30/2022 10/31/2022 WBC 3.70 - 11.00 k/uL 7.32 RBC 4.20 - 6.00 m/uL 5.69 Hemoglobin 13.0 - 17.0 g/dL 17.5 (H) Hematocrit 39.0 - 51.0 % 50.4 MCV 80.0 - 100.0 fL 88.6 MCH 26.0 - 34.0 pg 30.8 MCHC 30.5 - 36.0 g/dL 34.7 RDW-CV 11.5 - 15.0 % 12.4 Platelet Count 150 - 400 k/uL 237 MPV 9.0 - 12.7 fL 9.8 Neut% % 57.0 Abs Neut (ANC) 1.45 - 7.50 k/uL 4.17 Lymph% % 33.3 Abs Lymph 1.00 - 4.00 k/uL 2.44 Hardin% % 6.3 Abs Hardin <0.87 k/uL 0.46 Eosin% % 2.6 Abs Eosin <0.46 k/uL 0.19 Baso% % 0.5 Abs Baso <0.11 k/uL 0.04 Immature Gran % % 0.3 IMMATURE GRANS (ABS) <0.10 k/uL <0.03 NRBC /100 WBC 0.0 Absolute nRBC <0.01 k/uL <0.01 DTYPE Auto Protein, Total 6.3 - 8.0 g/dL 6.7 Albumin 3.9 - 4.9 g/dL 4.3 4.5 Calcium 8.5 - 10.2 mg/dL 8.5 Bilirubin, Total 0.2 - 1.3 mg/dL 0.7 Alkaline Phosphatase 38 - 113 U/L 56 AST 14 - 40 U/L 22 22 ALT 10 - 54 U/L 23 Glucose 74 - 99 mg/dL 84 110 (H) BUN 9 - 24 mg/dL 19 (A) 25 (H) Creatinine 0.73 - 1.22 mg/dL 1.3 1.23 (H) Sodium 136 - 144 mmol/L 138 Potassium 3.7 - 5.1 mmol/L 4.3 Chloride 97 - 105 mmol/L 105 CO2 22 - 30 mmol/L 25 Anion Gap 9 - 18 mmol/L 8 (L) eGFR >=60 mL/min/1.73m 67 Color Yellow Light Yellow Clarity Clear Clear Glucose, Urine Trace, Negative Negative Bilirubin, Urine Negative Negative Ketones, Urine Trace, Negative Negative Specific [place], Ur 1.005 - 1.030 1.023 Hemoglobin/Blood,Ur Negative, Trace Negative pH, Urine 5.0 - 8.0 5.5 Protein, Urine Trace, Negative 1+ (A) Urobilinogen Negative Negative Nitrites Negative Negative Leukest Negative, 25 [place]/mL Negative WBC, Urine 0-5 /HPF 0-5 /HPF RBC, Urine 0-3 /HPF 0-3 /HPF Epithelial Cells /HPF Few Total Cholesterol, Nonfasting <200 mg/dL 164 Triglycerides, Nonfasting <150 mg/dL 133 HDL Cholesterol, Nonfasting >39 mg/dL 38 (L) LDL Cholesterol, Nonfasting <100 mg/dL 99 Non HDL Cholesterol, Nonfasting <130 mg/dL 126 VLDL Cholesterol, Nonfasting <30 mg/dL 27 Total Chol/HDL Ratio, Nonfasting <5.10 mg/dL 4.32 LDL/HDL Ratio, Nonfasting <2.54 mg/dL 2.61 (H) Total Protein 6.4 - 8.2 gm/dL 6.4 ALT (SGPT) 12 - 78 U/L 24 Bilirubin, Total. 0.9 Cholesterol, Total 97 Triglyceride 52 HDL CHOLESTEROL 43 LDL Cholesterol 43 TC:HDL Ratio 2.3 Hemoglobin A1C 4.3 - 5.6 % 5.2 5.1 Estimated Average Glucose mg/dL 100 PSA. 1.27 Magnesium 1.7 - 2.3 mg/dL 2.1 A/P ASSESSMENT/PLAN: 1. Well adult exam - ICD9: V70.0, ICD10: Z00.00 (primary diagnosis) - Counseled on healthy diet and regular exercise - Follow up for annual exam in one year 2. Dyslipidemia - ICD9: 272.4, ICD10: E78.5 - good control - Encouraged following a low fat, low cholesterol diet. - Discussed the benefits of regular aerobic exercise and weight loss. - Encouraged following a low carbohydrate, healthy oil intake diet. - Continue current therapy. 3. Elevated hemoglobin A1c - ICD9: 790.29, ICD10: R73.09 - improved with life style changes. 4. Gastroesophageal reflux disease with esophagitis without hemorrhage - ICD9: 530.81, 530.10, ICD10: K21.00 - Continue treatment with Prilosec 20 mg QD 5. Renal insufficiency - ICD9: 593.9, ICD10: N28.9 - management per renal. 6. Coronary artery disease due to lipid rich plaque - ICD9: 414.00, 414.3, ICD10: I25.10, I25.83 - clinically stable no changes. 7. ABDULKADIR (obstructive sleep apnea) - ICD9: 327.23, ICD10: G47.33 - no longer needing CPAP with his weight loss. 8. Benign prostatic hyperplasia with urinary hesitancy - ICD9: 600.01, 788.64, ICD10: N40.1, R39.11 - discussed oral meds including Saw palmetto F/u 6 months routine check Lipid and A1c prior Jeremy Estrada MD documented in this encounter [facility] 04-30-2022 History of Presen t illness Narrative Chief Complaint Patient presents with: F/U 6 Month HPI Rodney Laws is a 62 year old male who presents here today for Chronic Medical Conditions.. Patient with hx of CAD, HLP, ABDULKADIR, Elevated a1c, renal insuficiency and those as below. Patient had labs for life insurance policy and his Total cholesterol was at 97 and LDL was 43. He lost some weight and eating better. Last 6 Encounter Wt Readings: Date: Wt: 04/30/2022 80.3 kg (177 lb) 10/31/2021 80.7 kg (178 lb) 09/26/2021 81.2 kg (179 lb) 05/07/2021 93 kg (205 lb) 04/27/2021 95.3 kg (210 lb) 02/19/2021 94.8 kg (209 lb) No other concerns today. Past medical history, appointments, medications, allergies reviewed. Previous Medical History PAST MEDICAL HISTORY Diagnosis Date Compression fracture of L1 lumbar vertebra (HCC) 07/19/2014 Tagents comp Compression fracture of L2 (HCC) 07/19/2014 Coronary artery disease due to lipid rich plaque 07/01/[address] Naylor, Cath 05/2018 showed EF 60 % normal LV wall motion, left main normal, LAD 30-40% stenosis, mild luminal irregularities less than 30%, Circ and RCA: no significant disease Dyslipidemia 11/19/2016 Elevated hemoglobin A1c 11/25/2019 Fall Hospatilized Family history of malignant neoplasm of gastrointestinal tract 05/15/2012 mother GERD with esophagitis 11/19/2016 History of compression fracture of spine 07/19/2014 [facility] comp: L1 and L2 History of COVID-19 10/02/2021 09/26/2021 History of DVT (deep vein thrombosis) 07/19/2014 [facility] comp. Has had two due to injuries Neck pain 11/19/2016 ABDULKADIR (obstructive sleep apnea) 09/04/2015 Proteinuria 11/26/[address] Martinez Renal insufficiency 11/26/2017 Stricture and stenosis of esophagus Tension-type headache, not intractable 11/19/2016 Previous Surgical History PAST SURGICAL HISTORY Procedure Laterality Date APPENDECTOMY COLONOSCOPY FLX DX W/COLLJ SPEC WHEN PFRMD 06/16/2012 Colonoscopy, repeat 5 yrs COLONOSCOPY FLX DX W/COLLJ SPEC WHEN PFRMD 12/11/[address] Short, repeat 5 yrs COLONOSCOPY GEN ANES 11/20/2020 Repeat in 3 years EGD 11/06/2016 for esophageal narrowing and had dialation. per Dr. Zamora EGD 11/20/2020 ESOPHAGOGASTRODUODENOSCOPY TRANSORAL DIAGNOSTIC 10/19/2012 EGD ESOPHAGOGASTRODUODENOSCOPY TRANSORAL DIAGNOSTIC 12/24/2012 EGD ESOPHAGOGASTRODUODENOSCOPY TRANSORAL DIAGNOSTIC 12/11/2015 EGD HEART CATHETERIZATION 07/2018 minor disease, per Dr. Naylor SEPTOPLASTY/SUBMUCOUS RESECJ W/WO CARTILAGE GRF Septoplasty and uvulectomy TONSILLECTOMY PRIMARY/SECONDARY <AGE 13 Tonsillectomy Family History FAMILY HISTORY Problem Relation Age of Onset Cancer Mother Liver ca. Colon Cancer Mother Alzheimer's Disease Father Stroke Father TIA's other (bowel problems) Father other (DVT's legs) Brother Patient Allergies ALLERGIES Allergen Reactions Bee Sting Vomiting Current Medications Current Outpatient Medications on File Prior to Visit Medication Sig atorvastatin (LIPITOR) 10 mg tablet Take 1 tablet by mouth daily at bedtime. For cholesterol. lisinopril (ZESTRIL, PRINIVIL) 5 mg tablet Take 1 tablet by mouth once daily. Started per renal, Dr. Martinez Benzonatate 200 mg capsule Take 1 capsule by mouth three times daily as needed. omeprazole (PRILOSEC) 20 mg capsule Take 1 capsule by mouth once daily. aspirin, enteric coated (LO-DOSE ASPIRIN) 81 mg EC tablet Take 81 mg by mouth once daily. CPAP Continue autoPAP 5-20 cmH2O, mask, tubing, filters, heated humidity, lifetime supplies. Dx: ABDULKADIR acetaminophen (TYLENOL) 325 mg tablet Take 2 tablets by mouth every 6 hours as needed for Pain. No current facility-administered medications on file prior to visit. Social History Social History Tobacco Use Smoking status: Never Smoker Smokeless tobacco: Never Used Substance Use Topics Alcohol use: No Drug use: No Review of Symptoms REVIEW OF SYSTEMS GENERAL: No weight loss, malaise or fevers NECK: Negative for lumps, goiter, pain and significant neck swelling RESPIRATORY: Negative for cough, hemoptysis, wheezing, COPD, dyspnea or shortness of breath CARDIOVASCULAR: Negative for chest pain, leg swelling, hypertension, CHF or palpitations NEURO: No history of headaches, syncope, paralysis, seizures or tremors EXAM: BP 100/72 (BP Site: Left Arm, BP Position: Sitting, BP Cuff Size: Large Adult) Pulse 60 Temp 36.3 C (97.3 F) Resp 18 Wt 80.3 kg (177 lb) BMI 26.91 kg/m General Appearance: Well appearing, alert, in no acute distress, well-hydrated, well nourished.. Neck: Supple, no adenopathy; thyroid symmetric, normal size, no bruits. Lungs: Lungs clear to auscultation. No wheezing, rhonchi, rales.. Heart: RRR without murmur, gallop, or rubs. No ectopy. Extremities: No deformities, edema, skin discoloration, clubbing or cyanosis. Good capillary refill. . Peripheral Pulses: Normal. Health Maintenance List SHINGRIX VACCINE(1 of 2) Never done COVID-19 VACCINE(3 - Booster for Pfizer series) due on 07/12/2021 DEPRESSION SCREENING due on 11/01/2021 INFLUENZA(1) due on 05/30/2022 LDL CHOLESTEROL due on 11/02/2022 ANNUAL PCP TEAM CHRONIC DISEASE VISIT due on 04/30/2023 COLORECTAL CANCER SCREENING due on 11/20/2023 DIABETES SCREEN due on 11/02/2024 DTAP,TDAP,TD(2 - Td or Tdap) due on 10/31/2025 PROSTATE CANCER SCREENING DISCUSSION due on 10/31/2026 LIPID SCREEN due on 11/02/2026 HEPATITIS C SCREENING Completed HIV SCREENING Discontinued Data reviewed Component Latest Ref Rng & Units 04/16/2022 BUN 7 - 18 MG/DL 19 (A) Creatinine 0.6 - 1.3 MG/DL 1.3 Total Protein 6.4 - 8.2 gm/dL 6.4 Albumin 3.2 - 4.6 gm/dL 4.3 AST 8 - 37 U/L 22 ALT (SGPT) 12 - 78 U/L 24 Bilirubin, Total. 0.9 Cholesterol, Total 97 Triglyceride 52 HDL CHOLESTEROL 43 LDL Cholesterol 43 TC:HDL Ratio 2.3 Hemoglobin A1C 5.2 Glucose 70 - 99 mg/dL 84 PSA. 1.27 ASSESSMENT/PLAN: 1. Dyslipidemia - ICD9: 272.4, ICD10: E78.5 (primary diagnosis) - good control Will stop lipitor since LDL is low at 43. Recheck in 6 months. - LIPID PANEL, NONFASTING - COMP METABOLIC PANEL 2. Renal insufficiency - ICD9: 593.9, ICD10: N28.9 Continue with renal. Stable labs - URINALYSIS, WITH MICROSCOPIC - CBC + DIFF 3. Elevated hemoglobin A1c - ICD9: 790.29, ICD10: R73.09 Improved. - HGB A1C - URINALYSIS, WITH MICROSCOPIC - COMP METABOLIC PANEL 4. Coronary artery disease due to lipid rich plaque - ICD9: 414.00, 414.3, ICD10: I25.10, I25.83 Cont with cardio - LIPID PANEL, NONFASTING - URINALYSIS, WITH MICROSCOPIC - COMP METABOLIC PANEL - CBC + DIFF 5. ABDULKADIR (obstructive sleep apnea) - ICD9: 327.23, ICD10: G47.33 No new issues 6. Gastroesophageal reflux disease with esophagitis without hemorrhage - ICD9: 530.81, 530.10, ICD10: K21.00 - Cont current management - URINALYSIS, WITH MICROSCOPIC - MAGNESIUM BLD - COMP METABOLIC PANEL 7. Medication management - ICD9: V58.69, ICD10: Z79.899 - MAGNESIUM BLD F/u 6 months. Labs prior. Lakeshia Morillo PA-C documented in this encounter [facility] 02-01-2022 Miscellaneous Notes GABE 10/31/2021 Appointment scheduled for 04/30/2022 Please advise. Thank you. Patient has been identified by name and date of : Yes Pending Prescriptions Disp Refills ATORVASTATIN 10 MG TABLET 30 tablet 5 Sig: Take 1 tablet by mouth daily at bedtime. For cholesterol. RAIZA: No RX INSTRUCTIONS: Patient aware RX will be sent to pharmacy. No need to notify patient. Katie Crenshaw documented in this encounter [facility] Diagnosis Well adult exam- Primary Routine general medical examination at a health care facility Dyslipidemia Other and unspecified hyperlipidemia Elevated hemoglobin A1c Other abnormal blood chemistry Gastroesophageal reflux disease with esophagitis without hemorrhage Renal insufficiency Unspecified disorder of kidney and ureter Coronary artery disease due to lipid rich plaque ABDULKADIR (obstructive sleep apnea) Obstructive sleep apnea (adult) (pediatric) Benign prostatic hyperplasia with urinary hesitancy [facility] Diagnosis URI with cough and congestion- Primary [facility] Diagnosis Subacute cough- Primary Cough Influenza-like illness Influenza with other respiratory manifestations documented in this encounter [facility] Summary Purpose Family History No Family History Records FoundNo Family History Records Found Advance Directives Documents on File Type Date Recorded Patient [employer] Expl anation Advance Directive(s) 11/20/2020 10:23 AM Advance Directive(s) 10/17/2020 5:03 PM Advance Directive(s) 12/11/2015 10:25 AM Advance Directive(s) 12/07/2015 10:46 AM Additional Source Comments (unrecognized sect ion and content) No Status Records FoundNo Status Records Found INFORMATION SOURCE (unrecogn ized section and content) DATE CREATED AUTHOR AUTHOR'S ORGANIZ ATION 06/12/2023 [facility] Source Comments (unrecognize d section and content) In the event this informatio n is protected by the Federal Confidentiality of Alcohol and Drug Abuse Patient Records regulations: The Federal rules restrict any use of the information to criminally investigate or prosecute any alcohol or drug abuse patient.[facility] event this information is protected by the Federal Confidentiality of Alcohol and Drug Abuse Patient Records regulations: The Federal rules restrict any use of the information to criminally investigate or prosecute any alcohol or drug abuse patient.[facility] the event this information is protected by the Federal Confidentiality of Alcohol and Drug Abuse Patient Records regulations: The Federal rules restrict any use of the information to criminally investigate or prosecute any alcohol or drug abuse patient.[facility] the event this information is protected by the Federal Confidentiality of Alcohol and Drug Abuse Patient Records regulations: The Federal rules restrict any use of the information to criminally investigate or prosecute any alcohol or drug abuse patient.[facility] the event this information is protected by the Federal Confidentiality of Alcohol and Drug Abuse Patient Records regulations: The Federal rules restrict any use of the information to criminally investigate or prosecute any alcohol or drug abuse patient.[facility] the event this information is protected by the Federal Confidentiality of Alcohol and Drug Abuse Patient Records regulations: The Federal rules restrict any use of the information to criminally investigate or prosecute any alcohol or drug abuse patient.[facility] the event this information is protected by the Federal Confidentiality of Alcohol and Drug Abuse Patient Records regulations: The Federal rules restrict any use of the information to criminally investigate or prosecute any alcohol or drug abuse patient.[facility] the event this information is protected by the Federal Confidentiality of Alcohol and Drug Abuse Patient Records regulations: The Federal rules restrict any use of the information to criminally investigate or prosecute any alcohol or drug abuse patient.[facility] Reason for Visit (unrecogniz ed section and content) Reason Comments F/U 6 Month Reason Comments Physical Reason Comments Medication Request Reason Comments Viral Syndrome Sore throat, congest ion, cough, headache has been going on 2-3 days Reason Comments Cough Congestion, ST, R ea r pain, diarrhea, WALLS, wheezing x1 month Reason Comments Refill Request Care Teams (unrecognized sec tion and content) Disposal Worker Relationship Specialty Start Date End Date Jeremy Estrada MD [address] [place] [address] PCP - General Family Practice 08/08/15 Disposal Worker Relationship Specialty Start Date End Date Jeremy Estrada MD [address] [place] [address] PCP - General Family Practice 08/08/15 Disposal Worker Relationship Specialty Start Date End Date Jeremy Estrada MD [address] [place] [address] PCP - General Family Medicine 08/08/15 Disposal Worker Relationship Specialty Start Date End Date Jeremy Estrada MD [facility] [place] [address] PCP - General Family Medicine 08/08/15 Disposal Worker Relationship Specialty Start Date End Date Jeremy Estrada MD [address] [place] [address] PCP - General Family Medicine 08/08/15 Disposal Worker Relationship Specialty Start Date End Date Jeremy Estrada MD [address] [place] [address] PCP - General Family Medicine 08/08/15 FOR RECORDS PERTAINING TO PATIENTS WHO ARE OR HAVE BEEN ENROLLED IN A CHEMICAL DEPENDENCY/SUBSTANCEABUSE PROGRAM, SOME INFORMATION MAY BE OMITTED. This clinical summary was aggregated from multiple sources. Caution should be exercised in using it in the provision of clinical care. This summary normalizes information from multiple sources, and as a consequence, information in this document may materially change the coding, format and clinical context of patient data. In addition, data may be omitted in some cases. CLINICAL DECISIONS SHOULD BE BASED ON THE PRIMARY CLINICAL RECORDS. [employer] provides no warranty or guarantee of the accuracy or completeness of information in this document.
== END | disposition home or self-care (01) ==
LOC: LABSPEC 13:24
PROVIDERS: PCP Family Medicine; Referring Provider Internal Medicine Nephrology; Visit Provider Internal Medicine Nephrology
DX: R80.9 Proteinuria, unspecified (principal)
CPT/HCPCS: 82570; 84156

== ENCOUNTER 2024-11-12 16:24 | Outpatient (CLI) | payer BC, SELFPAY ==
[2024-11-12 14:03] LABS: Albumin, Serum 3.5 g/dL (3.2-5.0); BUN 18 mg/dL (7-18); BUN/Creat Ratio 11.1 RATIO (10-20); Calcium,Total 8.6 mg/dL (8.5-10.1); Chloride 111 mmol/L (98-107); Creatinine, Serum 1.62 mg/dL (0.70-1.30); EST Glomerular Filtration Rate 46 mL/min (>60); Est Glom Filt Rate - Afr Amer 56 mL/min (>60); Glucose 101 mg/dL (74-106); Phosphorus 2.6 mg/dL (2.5-4.9); Potassium 4.3 mmol/L (3.5-5.1); Sodium Level 141 mmol/L (136-145)
== END 2024-11-12 23:00 | disposition home or self-care (01) ==
LOC: LAB 01-21 16:24
PROVIDERS: PCP Family Medicine; Referring Provider Internal Medicine Nephrology; Visit Provider Internal Medicine Nephrology
DX: N18.30 Chronic kidney disease, stage 3 unspecified (principal); R80.9 Proteinuria, unspecified
CPT/HCPCS: 36415; 80069

== ENCOUNTER → 2024-11-30 | Outpatient (CLI) | payer BC, SELFPAY ==
--- NOTE | 2024-11-30 17:14 | US_ITS ---
PROCEDURE: KIDNEY AND BLADDER REASON FOR EXAM: Acute kidney failure TECHNIQUE: Bilateral renal ultrasound. COMPARISON: 01/21/2018 FINDINGS: Normal renal sizes, parenchymal thicknesses, and echotextures. No hydronephrosis. No cysts or large solid renal masses. RIGHT Kidney Size: 12.0 x 5.7 x 6.0 cm Volume: 216.2 mL Cortical Thickness (if discernible): 1.5 cm (>6mm is normal) LEFT Kidney Size: 12.0 x 5.2 x 6.3 cm Volume: 204.82 mL Cortical Thickness (if discernible): 1.4 cm (>6mm is normal) Urinary bladder volume is 273 mL. Bilateral ureteral jets are visualized. Prostate is visualized and measures 9.3 x 7.2 x 7.8 cm Incidental note is made of increased echogenicity of the liver US/Kidney and Bladder IMPRESSION: 1. No sonographic abnormality of the kidneys. Normal echotexture. 2. Unremarkable sonographic evaluation of the bladder. 3. Prostatomegaly 4. Hepatic steatosis Reading Location: [facility]
== END | disposition home or self-care (01) ==
LOC: US 17:08
PROVIDERS: PCP Family Medicine; Referring Provider Internal Medicine Nephrology; Visit Provider Internal Medicine Nephrology
DX: N17.9 Acute kidney failure, unspecified (principal)
CPT/HCPCS: 76770

== ENCOUNTER → 2025-05-18 | Outpatient (CLI) | payer BC, SELFPAY ==
[2025-05-18 11:32] LABS: Albumin, Serum 4.3 g/dL (3.4-4.8); Anion Gap 11 (5-15); BUN 26 mg/dL (4-19); BUN/Creat Ratio 19.0 RATIO (10-20); Calcium,Total 9.4 mg/dL (7.6-11.0); Carbon Dioxide 24.9 mmol/L (21.0-32.0); Chloride 104 mmol/L (98-108); Glucose 122 mg/dL (70-99); Potassium 5.0 mmol/L (3.3-5.1)
[2025-05-18 12:20] LABS: Creatinine, Urine (random) 106.00 mg/dL (39.00-259.00); Protein, Urine (Random) 47.1 mg/dL (0.0-12.0); Protein:Creat Ratio 444 mg/g CRE (0-200)
== END | disposition home or self-care (01) ==
PROVIDERS: PCP Family Medicine; Referring Provider Internal Medicine Nephrology; Visit Provider Internal Medicine Nephrology
DX: N17.9 Acute kidney failure, unspecified (principal); R80.9 Proteinuria, unspecified
CPT/HCPCS: 36415; 80069; 82570; 84156